=== PATIENT | male | born 1945 | race Caucasian/White ===

== ENCOUNTER → 2018-05-09 09:22 | Outpatient (CLI) | payer MEDICARE, OTHER, SELFPAY ==
--- NOTE | 2018-05-09 | DI.ECHO.S_ITS ---
[place] [facility] +---------+ : : [address] : [address] : : : : [id number] : : : : Phone: [phone]---------+ Echocardiogram Report + + :Name: DEWAYNE OLIVER Study Date: 05/09/2018 Height: 70.5 in: :[facility] Exam Location: [facility] Weight: 217 lb : : Gender: Male BSA: 2.2 m2 : :: 1945 Age: 73 yrs BP: 110/62 mmHg: :Reason For Study: CARDIOMYOPATHY : :Ordering Physician: Annette : :Christ Performed By: Mami Miller : :Referring: ANNETTE BARRIOS : + + Interpretation Summary The left ventricle is normal in size, wall thickness, and systolic function without any focal wall motion abnormalities with the ejection fraction visually estimated to be 55-60%. Left ventricular systolic function has mildly improved compared to the previous exam. The right ventricle is normal in size and function and appears unchanged compared to the previous study. Pulmonary artery pressures cannot be estimated because of the lack of a measurable TR jet velocity but the IVC suggests a CVP of around 3 mmHg. The left atrium is severely dilated and the right atrium is moderate to severely dilated. Both measure mildly larger compared to the previous study. A patent foramen ovale is present that is unchanged compared to the previous study. There is no significant valvular heart disease. The ascending aorta is moderately enlarged and measures slightly larger compared to the previous study. The aortic arch is mildly enlarged but somewhat smaller compared to the previous exam. The patient was in atrial fibrillation with heart rates between 60 and 101 bpm during the exam. Procedure: A two-dimensional transthoracic echocardiogram with color flow and Doppler was performed. The study quality was technically adequate. Comparison is made with the echocardiogram of 05/03/17. The patient was in atrial fibrillation with heart rates between 60 and 101 bpm during the exam. Left Ventricle: The left ventricle is normal in size, wall thickness, and systolic function without any focal wall motion abnormalities. The ejection fraction is estimated to be 55-60%. Left ventricular systolic function has mildly improved compared to the previous exam. Diastolic function could not be accurately assessed due to atrial fibrillation. Right Ventricle: The right ventricle is normal in size and function. This is unchanged compared to the previous study. Atria: The left atrium is severely dilated. The right atrium is moderate to severely dilated. This is mildly larger compared to the previous study. A patent foramen ovale is present. This is unchanged compared to the previous study. Mitral Valve: There is mild to moderate mitral annular calcification. The mitral valve leaflets are slightly calcified. There is trace mitral regurgitation. Aortic Valve: The aortic valve is trileaflet. There is mild aortic valve sclerosis. Leaflet mobility is minimally reduced. There is no aortic valve stenosis. There is trace aortic regurgitation. This is unchanged compared to the previous study. Tricuspid Valve: The tricuspid valve is normal. There is a trace or physiologic amount of tricuspid regurgitation. Pulmonary artery pressures cannot be estimated because of the lack of a measurable TR jet velocity but the IVC suggests a CVP of around 3 mmHg. Pulmonic Valve: The pulmonic valve is not well seen, but is grossly normal. There is a trace or physiologic amount of pulmonic regurgitation. There is no significant valvular heart disease. Great Vessels: The aortic root is normal size. The ascending aorta is moderately enlarged. This is slightly larger compared to the previous study. The aortic arch is mildly enlarged. The pulmonary is not well visualized. The IVC is of normal diameter and collapses greater than 50% with a sniff. This suggests a low right atrial pressure of 3 mm Hg. Pericardium/ Pleura There is no pericardial effusion. There is no pleural effusion. MMode/2D Measurements & Calculations LVIDd: 4.3 cm LVOT diam: 2.5 cm LVIDs: 2.5 cm Ao root diam: 3.2 cm FS: 42.6 % asc Aorta Diam: 4.2 cm EPSS: 0.24 cm Ao Arch Diam (Prox Trans): 3.2 cm IVSd: 1.1 cm LVPWd: 0.83 cm LV morales. diameter/BSA (cm/m^2): 2.0 LV sys. diameter/BSA (cm/m^2): 1.1 LA A2 area: 33.3 cm2 RA long axis: 6.2 cm LA A4 area: 27.6 cm2 RA area: 26.1 cm2 LA length (vol): 7.3 cm RA vol: 93.8 ml LA vol: 107.4 ml RA : 43.2 ml/m2 LA vol index: 49.4 ml/m2 IVC diam: 1.1 cm RVD1 (basal): 3.9 cm RVD2 (mid): 3.0 cm TAPSE: 1.2 cm Doppler Measurements & Calculations Ao V2 max: 106.2 cm/sec LVOT Max Jovani: 80.7 cm/sec Ao V2 mean: 67.8 cm/sec LV V1 max P.6 mmHg Ao max P.5 mmHg LV V1 VTI: 12.7 cm Ao mean P.2 mmHg ANTIONE(I,D): 3.8 cm2 Ao V2 VTI: 16.8 cm ANTIONE(V,D): 3.8 cm2 sev ratio: 0.76 ANTIONE indexed to BSA (cm^2/m^2): 1.7 MV E max jovani: 80.2 cm/sec PA V2 max: 65.9 cm/sec PA V2 mean: 45.1 cm/sec PA mean P.92 mmHg PA pr(Accel): 35.7 mmHg Reading Physician:SHERMAN
== END ==
PROVIDERS: PCP Naturopath; Visit Provider Specialist
DX: I35.8 Other nonrheumatic aortic valve disorders (principal); I42.9 Cardiomyopathy, unspecified; Q21.1 Atrial septal defect; I48.91 Unspecified atrial fibrillation; I77.810 Thoracic aortic ectasia
CPT/HCPCS: 93306

== ENCOUNTER → 2019-09-01 10:31 | Outpatient (CLI) | payer MEDICARE, OTHER, SELFPAY ==
[2019-09-01 11:56] LABS: Alanine Aminotransferase 18 IU/L (<50); Albumin 4.2 g/dL (3.5-5.0); Albumin Globulin Ratio 1.3 (1.0-2.8); Alkaline Phosphatase 78 U/L (38-126); Aspartate Aminotransferase 30 IU/L (17-59); BUN Creatinine Ratio 21.6 (6-22); Bilirubin Total 0.6 mg/dL (0.2-1.3); Blood Urea Nitrogen 24 mg/dL (9-20); Calcium 9.5 mg/dL (8.4-10.2); Carbon Dioxide 29 mmol/L (22-32); Chloride 102 mmol/L (98-107); Estimated Glomerular Filt Rate > 60.0 mL/min (>60); Globulin 3.3 g/dL (1.7-4.1); Glucose 103 mg/dL (80-110); HEMOLYSIS < 15 (0-50); Magnesium 2.1 mg/dL (1.6-2.3); Potassium 4.6 mmol/L (3.4-5.1); Sodium 138 mmol/L (137-145); Total Protein 7.5 g/dL (6.3-8.2)
[2019-09-04 12:04] LABS: Cholesterol, Total 187 mg/dL (100-199); HDL-Cholesterol 60 mg/dL (>39); HDL-Particle (Total) 39.4 umol/L (>=30.5); LDL Particle 1175 nmol/L (<1000); LDL Size 20.9 nm (>20.5); LDL-Cholsterol 88 mg/dL (0-99); LP-IR Score 46 (<=45); Small LDL- Particle 577 nmol/L (<=527); Triglycerides 195 mg/dL (0-149)
== END ==
PROVIDERS: PCP Naturopath; Referring Provider Specialist; Visit Provider Specialist
DX: I48.20 Chronic atrial fibrillation, unspecified (principal); E78.2 Mixed hyperlipidemia
CPT/HCPCS: 36415; 80053; 80061; 83704; 83735

== ENCOUNTER → 2020-08-08 09:17 | Outpatient (CLI) | payer MEDICARE, OTHER, SELFPAY ==
[2020-08-08 12:06] LABS: Alanine Aminotransferase 16 IU/L (<50); Albumin 4.2 g/dL (3.5-5.0); Albumin Globulin Ratio 1.4 (1.0-2.8); Alkaline Phosphatase 76 U/L (38-126); Aspartate Aminotransferase 30 IU/L (17-59); BUN Creatinine Ratio 19.4 (6-22); Bilirubin Total 0.7 mg/dL (0.2-1.3); Blood Urea Nitrogen 21 mg/dL (9-20); Calcium 9.4 mg/dL (8.4-10.2); Carbon Dioxide 30 mmol/L (22-32); Chloride 101 mmol/L (98-107); Estimated Glomerular Filt Rate > 60.0 mL/min (>60); Globulin 2.9 g/dL (1.7-4.1); Glucose 104 mg/dL (80-110); HEMOLYSIS < 15 (0-50); Magnesium 2.1 mg/dL (1.6-2.3); Potassium 4.6 mmol/L (3.4-5.1); Sodium 137 mmol/L (137-145); Total Protein 7.1 g/dL (6.3-8.2)
[2020-08-22 13:26] LABS: LDL Particle SEE SEPARATE REPORTS
== END ==
PROVIDERS: PCP Naturopath; Referring Provider Specialist; Visit Provider Specialist
DX: E78.00 Pure hypercholesterolemia, unspecified (principal); I48.20 Chronic atrial fibrillation, unspecified
CPT/HCPCS: 36415; 80053; 80061; 83704; 83735

== ENCOUNTER → 2021-05-23 09:19 | Outpatient (CLI) | payer MEDICARE, OTHER, SELFPAY ==
[2021-05-23 11:42] LABS: Alanine Aminotransferase 18 IU/L (<50); Albumin Globulin Ratio 1.4 (1.0-2.8); Alkaline Phosphatase 68 U/L (38-126); Aspartate Aminotransferase 28 IU/L (17-59); BUN Creatinine Ratio 16.3 (6-22); Bilirubin Total 0.9 mg/dL (0.2-1.3); Blood Urea Nitrogen 16 mg/dL (9-20); Calcium 9.4 mg/dL (8.4-10.2); Carbon Dioxide 30 mmol/L (22-32); Chloride 104 mmol/L (98-107); Estimated Glomerular Filt Rate > 60.0 mL/min (>60); Globulin 2.8 g/dL (1.7-4.1); Glucose 105 mg/dL (80-110); HEMOLYSIS < 15 (0-50); Magnesium 2.1 mg/dL (1.6-2.3); Potassium 5.1 mmol/L (3.4-5.1); Sodium 140 mmol/L (137-145); Total Protein 6.8 g/dL (6.3-8.2)
[2021-05-25 12:22] LABS: Cholesterol, Total 145 mg/dL (100-199); HDL-Cholesterol 55 mg/dL (>39); HDL-Particle (Total) 38.4 umol/L (>=30.5); LDL Particle 973 nmol/L (<1000); LDL-Cholsterol 68 mg/dL (0-99); LP-IR Score 60 (<=45); Small LDL- Particle 577 nmol/L (<=527); Triglycerides 123 mg/dL (0-149)
== END ==
PROVIDERS: PCP Naturopath; Referring Provider Physician Assistant Medical; Visit Provider Specialist
DX: I48.20 Chronic atrial fibrillation, unspecified (principal); E78.00 Pure hypercholesterolemia, unspecified
CPT/HCPCS: 36415; 80053; 80061; 83704; 83735

== ENCOUNTER → 2021-05-29 07:50 | Outpatient (CLI) | payer MEDICARE, OTHER, SELFPAY ==
--- NOTE | 2021-05-29 08:06 | DI.ECHO.S_ITS ---
:Reason For Study: DILATED CARDIOMYOPATHY : :Ordering Physician: SOPHIE : :ANNETTE Performed By: Nichelle Rehman : :Referring: ANNETTE BARRIOS : + + Interpretation Summary Left ventricular systolic function remains normal with an estimated ejection fraction of 50 to 60% without any focal wall motion abnormality and appears unchanged from the previous exam. Left ventricular size remains normal with mild concentric LVH. Diastolic function is challenging to assess but there is no compelling evidence for significantly elevated filling pressures. The right ventricle appears normal in size and systolic function and unchanged from the previous study. Right ventricular systolic pressure cannot be estimated but CVP is likely around 3 mmHg. Both atria are moderate to severely enlarged but grossly unchanged from the previous study. There is a probable patent foramen ovale that was not well seen on today's study but was present on the previous exam. There is mild to moderate aortic valve sclerosis without stenosis with mild aortic regurgitation that is more prominent compared to the previous study. There is no other significant valvular abnormality. The ascending aorta remains moderately enlarged at 4.0 cm compared to 4.2 cm previous. The patient was in atrial fibrillation at 69 to 93 bpm, unchanged from the previous study. Procedure: A two-dimensional transthoracic echocardiogram with color flow and Doppler was performed. The study quality was technically adequate. Comparison is made with the echocardiogram of 05/09/2018. The patient was in atrial fibrillation with heart rates between 69-93 bpm during the exam. Left Ventricle: The left ventricle is normal in size. The estimated left ventricular end diastolic volume is 63 ml. There is mild concentric left ventricular hypertrophy. Left ventricular systolic function appears normal without focal wall motion abnormalities. Left ventricular ejection fraction is estimated to be 50 to 60% with considerable [id number] variability because of atrial fibrillation. Diastolic function could not be accurately assessed due to atrial fibrillation. There is no compelling evidence for significantly elevated filling pressures. Right Ventricle: The right ventricle is normal in size and function. This is unchanged compared to the previous study. Atria: Both atria are moderately dilated. This is unchanged compared to the previous study. The interatrial septum grossly appears intact with no obvious evidence for an atrial septal defect. There is a probable patent foramen ovale that is not well documented on this exam but was present on the previous study. Mitral Valve: There is mild to moderate mitral annular calcification. There is trace mitral regurgitation. Aortic Valve: The aortic valve is trileaflet. The aortic valve is moderately calcified. There is minimally reduced leaflet mobility. There is no aortic valve stenosis. There is mild aortic regurgitation. This is more prominent compared to the previous study. Tricuspid Valve: The tricuspid valve is normal in structure and function. There is trace tricuspid regurgitation. Pulmonary artery pressures cannot be estimated because of the lack of a measurable TR jet velocity but the IVC suggests a CVP of around 3 mmHg. Pulmonic Valve: The pulmonic valve leaflets are thin and pliable; valve motion is normal. There is no pulmonic valvular regurgitation. Great Vessels: The aortic root is normal size. The ascending aorta is moderately enlarged. This is unchanged compared to the previous study. The aortic arch is normal in size. The IVC is of normal diameter and collapses greater than 50% with a sniff. This suggests a low right atrial pressure of 3 mm Hg. Pericardium/ Pleura There is no pericardial effusion. There is no pleural effusion. MMode/2D Measurements & Calculations LVIDd: 3.9 cm LVOT diam: 2.4 cm LVIDs: 2.8 cm Ao root diam: 3.5 cm FS: 28.4 % asc Aorta Diam: 4.0 cm IVSd: 1.2 cm Ao Arch Diam (Prox Trans): 2.4 cm LVPWd: 1.1 cm LV morales. diameter/BSA (cm/m^2): 1.8 LV sys. diameter/BSA (cm/m^2): 1.3 LA A2 area: 31.2 cm2 RA long axis: 6.8 cm LA A4 area: 29.6 cm2 RA area: 28.7 cm2 LA length (vol): 7.0 cm RA vol: 102.9 ml LA vol: 111.8 ml RA : 46.4 ml/m2 LA vol index: 50.5 ml/m2 IVC diam: 2.0 cm RVD1 (basal): 4.1 cm TAPSE: 1.7 cm Doppler Measurements & Calculations Ao V2 max: 135.6 cm/sec LVOT Max Jovani: 89.3 cm/sec Ao V2 mean: 94.2 cm/sec LV V1 max P.2 mmHg Ao max P.4 mmHg LV V1 VTI: 17.7 cm Ao mean P.0 mmHg ANTIONE(I,D): 3.2 cm2 Ao V2 VTI: 25.2 cm ANTIONE(V,D): 3.0 cm2 sev ratio: 0.70 ANTIONE indexed to BSA (cm^2/m^2): 1.4 MV E max jovani: 92.3 cm/sec PA V2 max: 104.6 cm/sec MV A max ojvani: 0.96 cm/sec PA V2 mean: 70.0 cm/sec MV E/A: 96.5 PA mean P.2 mmHg Med Peak E' Ojvani: 9.2 cm/sec PA pr(Accel): 32.8 mmHg E/E' med: 10.0 Lat Peak E' Jovani: 10.4 cm/sec E/E' lat: 8.9 E/e' average: 9.4 MV dec time: 0.17 sec SV(LVOT): 80.3 ml Reading Physician:08:30 AM
== END ==
PROVIDERS: PCP Naturopath; Referring Provider Specialist; Visit Provider Specialist
DX: I35.0 Nonrheumatic aortic (valve) stenosis (principal); I77.89 Other specified disorders of arteries and arterioles; I42.0 Dilated cardiomyopathy
CPT/HCPCS: 93306

== ENCOUNTER 2022-02-11 12:06 | Emergency (ER) | payer MEDICARE, OTHER, SELFPAY ==
[2022-02-11] VITALS (12 sets, daily range): BP systolic 110–152; BP diastolic 71–83; PULSE 69–80; RESP 14–24; TEMP 37.2; O2SAT 98–99; BMI 34.4
--- NOTE | 2022-02-11 12:16 | DI.CT.S_ITS ---
PROCEDURE: CT CERVICAL SPINE WO CON INDICATIONS: fall on coumadin TECHNIQUE: Noncontrast 3 mm thick sections acquired from the skull base to the T4 level. Sagittal and coronal reformats were then constructed. For radiation dose reduction, the following was used: automated exposure control, adjustment of mA and/or kV according to patient size. COMPARISON: None. FINDINGS: Image quality: Excellent. Bones: No fractures or dislocations. Degenerative endplate changes, loss of disc height and bilateral facet hypertrophic changes are noted throughout cervical spine more prominent at C5-6 level causing [id number] central canal stenosis and mild bilateral neural foraminal narrowing. Visualized superior ribs are intact. Soft tissues: Prevertebral soft tissues are normal in thickness. No paravertebral hematomas. No apical pneumothoraces. IMPRESSION: 1. No acute cervical spine fracture or dislocation. 2. Degenerative disc disease throughout cervical spine as above. Dictated by: Stoney Yu M.D. on 02/11/2022 at 12:38 Approved by: Stoney Yu M.D. on 02/11/2022 at 12:40
--- NOTE | 2022-02-11 12:16 | DI.CT.S_ITS ---
PROCEDURE: CT HEAD/BRAIN WO CON INDICATIONS: fall on coumadin TECHNIQUE: Noncontrast 4.5 mm thick angled axial sections acquired from the foramen magnum to the vertex, with coronal and sagittal reformats. For radiation dose reduction, the following was used: automated exposure control, adjustment of mA and/or kV according to patient size. COMPARISON: None. FINDINGS: Image quality: Excellent. CSF spaces: Basal cisterns are patent. No extra-axial fluid collections. The ventricles are symmetric in size and shape. Brain: No intracranial bleeds or masses. There is cerebral volume loss for age, with resultant ventricular and sulcal prominence. There are periventricular and deep white matter chronic small vessel ischemic changes. There is intracranial internal carotid artery atherosclerosis. Skull and face: Left frontal scalp hematoma and swelling is seen. Calvarium and visualized facial bones appear intact, without suspicious lesions. Sinuses: Visualized sinuses and mastoids are clear. IMPRESSION: 1. No CT evidence of acute intracranial abnormalities. 2. Moderate atrophy and moderate white matter chronic small vessel ischemic changes. 3. Left frontal scalp hematoma and swelling, no gross acute skull fracture. Dictated by: Stoney Yu M.D. on 02/11/2022 at 12:41 Approved by: Stoney Yu M.D. on 02/11/2022 at 12:42
--- NOTE | 2022-02-11 12:16 | DI.RAD.S_ITS ---
PROCEDURE: XR CHEST 1V INDICATIONS: fall TECHNIQUE: One view of the chest was acquired. COMPARISON: None. FINDINGS: Surgical changes and devices: None. Lungs and pleura: Lungs are clear. No pleural effusions or pneumothorax. Mediastinum: Mediastinal contours appear normal. Heart size is enlarged. Bones and chest wall: No suspicious bony lesions. Overlying soft tissues appear unremarkable. IMPRESSION: No acute cardiopulmonary pathology. Dictated by: Stoney Yu M.D. on 02/11/2022 at 12:38 Approved by: Stoney Yu M.D. on 02/11/2022 at 12:38
--- NOTE | 2022-02-11 12:16 | DI.CT.S_ITS ---
PROCEDURE: CT FACIAL BONES WO CON INDICATIONS: fall on coumadin TECHNIQUE: Noncontrast 2.5 mm thick axial images acquired from the mandible through the frontal sinuses, with coronal and sagittal reformatting. For radiation dose reduction, the following was used: automated exposure control, adjustment of mA and/or kV according to patient size. COMPARISON: None. FINDINGS: Image quality: Excellent. Bones and teeth: Orbital aldana are intact. Sinus aldana show no fracture or deformity. Nasal bones and septum are intact. Visualized portions of the mandible demonstrate no fractures or subluxation. Zygomatic arches are intact. Pterygoid plates are intact. Visualized portions of the skull base and auditory canals are intact. Sinuses: Paranasal sinuses are aerated, without fluid levels, mucosal thickening, or mucoceles. Mastoid air cells are aerated. Soft tissues: Left frontal /supraorbital swelling and edema is seen. No other soft tissue edema or swelling. No enlarged lymph nodes. No soft tissue lacerations or debris. Vascular: Visualized vascular structures appear normal in the absence of contrast. Bony vascular foramina and canals are intact. IMPRESSION: 1. No acute facial bone or nasal bone fracture. 2. Left frontal/supraorbital soft tissue swelling and edema. Orbital aldana are intact. Bilateral orbital globes are intact. 3. Bilateral paranasal sinuses are well aerated. Dictated by: Stoney Yu M.D. on 02/11/2022 at 12:40 Approved by: Stoney Yu M.D. on 02/11/2022 at 12:41
[2022-02-11 12:44] LABS: Add Manual Diff / Slide Review NO; Basophils Absolute Auto 100 /uL (0-100); Basophils Percent Auto 0.9 % (0-2); Eosinophils Absolute Auto 100 /uL (0-450); Eosinophils Percent Auto 1.3 % (2-4); Hematocrit 44.7 % (41-53); Hemoglobin 15.1 g/dL (13.5-17.5); Lymphocytes Absolute Auto 900 /uL (1100-4500); Lymphocytes Percent Auto 10.9 % (25-40); Mean Corpuscular HGB Conc 33.7 % (30-36); Mean Corpuscular Hemoglobin 33.2 PG (26-34); Mean Corpuscular Volume 98.7 fL (80-100); Monocytes Absolute Auto 800 /uL (0-900); Monocytes Percent Auto 9.7 % (3-14); Neutrophils Absolute Auto 6200 /uL (1500-7000); Neutrophils Percent Auto 77.2 % (50-75); Platelet Count 145 X10^3/uL (150-400); Red Blood Cell Count 4.53 X10^6/uL (4.5-5.9); Red Cell Distribution Width 15.4 % (11.6-14.8)
[2022-02-11 12:51] LABS: INR 2.7 (0.9-1.3); Prothrombin Time 31.2 SECONDS (10.1-12.7)
[2022-02-11 12:53] LABS: PTT Partial Thromboplastin Tim 42 SECONDS (26-36)
--- NOTE | 2022-02-11 12:57 | ED_ITS ---
HPI - Fall General Chief Complaint: Fall Stated Complaint: DIZZY/FELL HIT LT. SIDE OF HEAD/INJURY Time Seen by Provider: 02/11/22 12:16 Source: patient Mode of arrival: Ambulatory Limitations: no limitations History of Present Illness HPI Narrative: This is a 76-year-old male with history of atrial fibrillation anticoagulant warfarin with Coreg, lisinopril, Lasix, Mag-Ox and rosuvastatin. Patient presents With complaint of possible syncope. Patient states he was taking his garbage out today he had taken across the street quite feel right and then states he remembers starting to fall to the ground and woke up shortly thereafter. Patient states he thinks it was maybe a couple minutes at the most. He would left the house at 9:00 a.m. and thinks he was back by 904. States he did have a little bit of spasm across and down his arm which he is had occasionally in the mornings about 1-2 hours after eating but not persistently or consistently but not with other meals. He denies fevers or chills no cold, cough or congestion. Denies any headaches prior to or after, no chest pain, patient has some chronic persistent shortness of breath which he relates to his AFib which has not changed. No palpitations. No diaphoresis. No nausea or vomiting. No loss of bowel control, no recent diarrhea, constipation black or bloody stools. He states he did have urinary incontinence with the episode happened. Patient denies any numbness or tingling other than just before. Patient states he is had these episodes a few times he describes it as always in the morning he will feel sick for about a minute or so he will usually sit down and it typically occurs 1-2 hours after he is eaten. He states it does not happen every single time it is not been consistent other than it is usually in the morning after breakfast. Patient denies any prior surgeries, no cardiac interventions, no stents or ablation. States a remote allergy to sulfa caused him to vomit. No tobacco, 3 alcoholic drinks daily in the evening, none this morning, no illicit. Patient is unsure if his tetanus is up-to-date. He has primary care was Cristela porter but is transitioning to Dr. Bravo on the . Dr. Polo is his senior electrical design engineer. Related Data Allergies Allergy/AdvReac Type Severity Reaction Status Date / Time Sulfa (Sulfonamide Allergy Verified 02/11/22 12:17 Antibiotics) Review of Systems Review of Systems ROS Unobtainable: All systems reviewed & are unremarkable except as noted in HPI and below Patient History Social History Smoking Status: Unknown if ever smoked Smoking Status: Unknown if ever smoked alcohol intake frequency: holidays/special occasions only Substance Use Type: does not use Exam Narrative Exam Narrative: GEN: Patient appears in mild distress. HEAD: Patient has left forehead hematoma with abrasion, no raccoon/Cerna sign. NECK: Nontender, painless range of motion, trachea midline Negative for Nexus criteria, there is no midline line tenderness, distracting injury, altered mental status, neuro deficit, recent EtOH. EYES: PERRLA, EOMI ENT: External inspection normal except for small abrasion over the bridge of the nose and as described above, trachea is midline, TM's are normal no hemotypanum, Nares are clear, no septal hematoma, no dental or oral injury, airway is normal and with normal occlusion, No bony tenderness, no malocclusion. RESP: Chest is nontender and has symmetric movement, no ecchymosis, breath sounds are normal no crackles, wheezes or rales CVS: Heart sounds are normal, no murmur noted, No JVD. ABG/GI: Nontender, soft, normal bowel sounds, no distention, no organomegaly, pelvic rock is negative NEURO: Oriented AOx3, neuro is grossly intact, sensation and motor is normal all 4 extremities moving, cranial nerves II through XII are intact, GCS is 15 PSYCH: Normal mood and affect SKIN: Patient has large abrasion on his right knee and anterior zheng no subcutaneous involvement, warm and dry, no crepitus and without decubitus BACK: No CVA tenderness, no vertebral tenderness, no step-off's, no crepitus EXT: Atraumatic, hips are nontender, no pedal edema, normal color and temperature, normal range of motion of extremities with normal tendon exam, 2+ pulses in all four extremities Initial Vital Signs Initial Vital Signs: Vital Signs Temperature 98.9 F 02/11/22 12:12 Pulse Rate 72 02/11/22 12:12 Respiratory Rate 16 02/11/22 12:12 Blood Pressure 134/83 09/07/22 12:12 Pulse Oximetry 99 02/11/22 12:12 Oxygen Delivery Method 02/11/22 12:12 Course Orders Ordered: ED Orders 02/11/22 12:16 CT cervical spine wo con Stat CT facial bones wo con Stat CT head/brain wo con Stat XR chest 1V Stat 02/11/22 12:35 Complete Blood Count AUTO DIFF Stat Comprehensive Metabolic Panel Stat D Dimer Stat Lipase Stat NT-proBNP (BNP-Adult 18+) Stat Partial Thromboplastin Time Stat Prothrombin Time INR Stat Troponin & CK Cardiac Panel Stat 02/11/22 12:37 EKG-12 Lead Stat 02/11/22 13:10 COVID19 -Nasal RAPID/Pre-Proc Stat 02/11/22 13:35 Urine Culture Stat Urine Microscopic Stat 02/11/22 14:30 ETOH [Ethanol (ETOH)] Stat Trop I [Troponin I] Stat Discontinued Medications Diphtheria/Tetanus/Acell Pertussis (Tet,Diph,Pertuss(Acell),Vac/Pf 0.5 Ml Syringe) 0.5 ml IM .ONCE ONE Stop: 02/11/22 13:17 Last Admin: 02/11/22 13:30 Dose: 0.5 ml Documented By: CATHERINE Vital Signs Vital signs: Vital Signs - 8 hr 02/11/22 12:12 02/11/22 12:15 02/11/22 12:39 Temperature 98.9 F Pulse Rate 72 80 Respiratory Rate 16 24 Blood Pressure 134/83 134/83 Pulse Oximetry 99 99 Oxygen Delivery Method Room Air 02/11/22 12:41 02/11/22 12:41 02/11/22 13:00 Temperature Pulse Rate 76 Respiratory Rate 21 Blood Pressure 121/74 116/76 Pulse Oximetry 99 Oxygen Delivery Method 02/11/22 13:00 02/11/22 13:30 02/11/22 13:30 Temperature Pulse Rate 76 70 Respiratory Rate 20 Blood Pressure 110/81 Pulse Oximetry 99 98 Oxygen Delivery Method 02/11/22 13:47 02/11/22 13:47 02/11/22 14:00 Temperature Pulse Rate 78 75 Respiratory Rate 17 15 Blood Pressure 152/79 H Pulse Oximetry 98 99 Oxygen Delivery Method 02/11/22 14:01 02/11/22 14:01 02/11/22 14:30 Temperature Pulse Rate 77 Respiratory Rate 15 Blood Pressure 126/71 119/80 Pulse Oximetry 99 Oxygen Delivery Method 02/11/22 14:30 02/11/22 15:00 02/11/22 15:00 Temperature Pulse Rate 80 69 Respiratory Rate 14 21 Blood Pressure 117/74 Pulse Oximetry 99 99 Oxygen Delivery Method 02/11/22 15:30 02/11/22 15:30 Temperature Pulse Rate 74 Respiratory Rate 24 Blood Pressure 137/81 Pulse Oximetry 99 Oxygen Delivery Method MDM - Fall Lab Data Result diagrams: 02/11/22 12:35 02/11/22 12:35 Labs: Lab Results 02/11/22 02/11/22 02/11/22 Range/Units 12:35 12:35 12:35 WBC 8.0 (4.5-11.0) X10^3/uL RBC 4.53 (4.5-5.9) X10^6/uL Hgb 15.1 (13.5-17.5) g/dL Hct 44.7 (41-53) % MCV 98.7 (80-100) fL MCH 33.2 (26-34) PG MCHC 33.7 (30-36) % RDW 15.4 H (11.6-14.8) % Plt Count 145 L (150-400) X10^3/uL Neut % (Auto) 77.2 H (50-75) % Lymph % (Auto) 10.9 L (25-40) % [place] % (Auto) 9.7 (3-14) % Eos % (Auto) 1.3 L (2-4) % Baso % (Auto) 0.9 (0-2) % Neut # (Auto) 6200 (8643-0834) /uL Lymph # (Auto) 900 L (5048-7191) /uL [place] # (Auto) 800 (0-900) /uL Eos # (Auto) 100 (0-450) /uL Baso # (Auto) 100 (0-100) /uL PT 31.2 H (10.1-12.7) SECONDS INR 2.7 H (0.9-1.3) APTT 42 H (26-36) SECONDS D-Dimer (<500) ng/ml Sodium 140 (137-145) mmol/L Potassium 4.3 (3.4-5.1) mmol/L Chloride 103 (98-107) mmol/L Carbon Dioxide 32 (22-32) mmol/L BUN 21 H (9-20) mg/dL Creatinine 1.13 (0.66-1.25) mg/dL Estimated GFR > 60 (>60) mL/min BUN/Creatinine Ratio 18.6 (6-22) Glucose 98 (80-110) mg/dL Calcium 9.2 (8.4-10.2) mg/dL Total Bilirubin 1.0 (0.2-1.3) mg/dL AST 59 (17-59) IU/L ALT 41 (<50) IU/L Alkaline Phosphatase 81 (38-126) U/L Total Creatine Kinase 65 (55-170) U/L CK-MB (CK-2) TNP CK-MB (CK-2) Rel Index TNP Troponin I < 0.012 (0.01-0.034) ng/mL NT-Pro-B Natriuret Pep (<125) pg/mL Total Protein 8.0 (6.3-8.2) g/dL Albumin 4.4 (3.5-5.0) g/dL Globulin 3.6 (1.7-4.1) g/dL Albumin/Globulin Ratio 1.2 (1.0-2.8) Lipase 118 (23-300) U/L Urine RBC (0-5/HPF) Urine WBC (0-5/HPF) Ur Squamous Epith Cells (0-5/HPF) Urine Bacteria (None) Ur Culture Indicated? Ethyl Alcohol ( - 10) mg/dL SARS-CoV-2 (PCR) (Negative) 02/11/22 02/11/22 02/11/22 Range/Units 12:35 12:35 13:10 WBC (4.5-11.0) X10^3/uL RBC (4.5-5.9) X10^6/uL Hgb (13.5-17.5) g/dL Hct (41-53) % MCV (80-100) fL MCH (26-34) PG MCHC (30-36) % RDW (11.6-14.8) % Plt Count (150-400) X10^3/uL Neut % (Auto) (50-75) % Lymph % (Auto) (25-40) % [place] % (Auto) (3-14) % Eos % (Auto) (2-4) % Baso % (Auto) (0-2) % Neut # (Auto) (8426-3724) /uL Lymph # (Auto) (5856-4036) /uL [place] # (Auto) (0-900) /uL Eos # (Auto) (0-450) /uL Baso # (Auto) (0-100) /uL PT (10.1-12.7) SECONDS INR (0.9-1.3) APTT (26-36) SECONDS D-Dimer 423 (<500) ng/ml Sodium (137-145) mmol/L Potassium (3.4-5.1) mmol/L Chloride (98-107) mmol/L Carbon Dioxide (22-32) mmol/L BUN (9-20) mg/dL Creatinine (0.66-1.25) mg/dL Estimated GFR (>60) mL/min BUN/Creatinine Ratio (6-22) Glucose (80-110) mg/dL Calcium (8.4-10.2) mg/dL Total Bilirubin (0.2-1.3) mg/dL AST (17-59) IU/L ALT (<50) IU/L Alkaline Phosphatase (38-126) U/L Total Creatine Kinase (55-170) U/L CK-MB (CK-2) CK-MB (CK-2) Rel Index Troponin I (0.01-0.034) ng/mL NT-Pro-B Natriuret Pep 722 H (<125) pg/mL Total Protein (6.3-8.2) g/dL Albumin (3.5-5.0) g/dL Globulin (1.7-4.1) g/dL Albumin/Globulin Ratio (1.0-2.8) Lipase (23-300) U/L Urine RBC (0-5/HPF) Urine WBC (0-5/HPF) Ur Squamous Epith Cells (0-5/HPF) Urine Bacteria (None) Ur Culture Indicated? Ethyl Alcohol ( - 10) mg/dL SARS-CoV-2 (PCR) Negative (Negative) 02/11/22 02/11/22 02/11/22 Range/Units 13:35 14:30 14:30 WBC (4.5-11.0) X10^3/uL RBC (4.5-5.9) X10^6/uL Hgb (13.5-17.5) g/dL Hct (41-53) % MCV (80-100) fL MCH (26-34) PG MCHC (30-36) % RDW (11.6-14.8) % Plt Count (150-400) X10^3/uL Neut % (Auto) (50-75) % Lymph % (Auto) (25-40) % [place] % (Auto) (3-14) % Eos % (Auto) (2-4) % Baso % (Auto) (0-2) % Neut # (Auto) (6566-3931) /uL Lymph # (Auto) (8672-3277) /uL [place] # (Auto) (0-900) /uL Eos # (Auto) (0-450) /uL Baso # (Auto) (0-100) /uL PT (10.1-12.7) SECONDS INR (0.9-1.3) APTT (26-36) SECONDS D-Dimer (<500) ng/ml Sodium (137-145) mmol/L Potassium (3.4-5.1) mmol/L Chloride (98-107) mmol/L Carbon Dioxide (22-32) mmol/L BUN (9-20) mg/dL Creatinine (0.66-1.25) mg/dL Estimated GFR (>60) mL/min BUN/Creatinine Ratio (6-22) Glucose (80-110) mg/dL Calcium (8.4-10.2) mg/dL Total Bilirubin (0.2-1.3) mg/dL AST (17-59) IU/L ALT (<50) IU/L Alkaline Phosphatase (38-126) U/L Total Creatine Kinase (55-170) U/L CK-MB (CK-2) CK-MB (CK-2) Rel Index Troponin I < 0.012 (0.01-0.034) ng/mL NT-Pro-B Natriuret Pep (<125) pg/mL Total Protein (6.3-8.2) g/dL Albumin (3.5-5.0) g/dL Globulin (1.7-4.1) g/dL Albumin/Globulin Ratio (1.0-2.8) Lipase (23-300) U/L Urine RBC 1-5/hpf (0-5/HPF) Urine WBC 5-10/hpf H (0-5/HPF) Ur Squamous Epith Cells 0-1 /hpf (0-5/HPF) Urine Bacteria Occasional (0-1) (None) Ur Culture Indicated? Specimen cultured Ethyl Alcohol < 10 ( - 10) mg/dL SARS-CoV-2 (PCR) (Negative) Urine Dip Bedside Urine Glucose Negative Bedside Urine Bilirubin - Negative Bedside Urine Ketone - Negative Urine Specific [place] 1.025 Bedside Urine Occult Blood +/- Bedside Urine pH 6.0 Bedside Urine Protein - Negative Bedside Urine Urobilinogen - Negative Bedside Urine Nitrite - Negative Bedside Urine Leukocytes - Negative Esterase Imaging Data CT scan - head: Radiologist's Impression: Almas Bunch??76??M??1945 ? Allergy/Adv: Sulfa (Sulfonamide Antibiotics) (More??) Close Head CT (Signed) Stoney Yu - 02/11/[address] (Signed) Stoney Yu - 02/11/22 Chest X-Ray (Signed) Stoney Yu - 02/11/[address] (Signed) Stoney Yu - 02/11/22 Echocardiogram Ultrasound (Signed) Mitchell Polo - 05/29/21 Echocardiogram Ultrasound (Signed) Mitchell Polo - 05/09/18 [place] [address] CT Scan Report Signed Patient: Almas Bunch MR#: [id number] : 1945 Acct:[id number] Age/Sex: 76 / M Date of Service: 02/11/22 Loc: ED Accession Number: [id number] ?? Procedure: CT head/brain wo con Ordering Provider: Rachel Lea D.O. PROCEDURE:? CT HEAD/BRAIN WO CON ? INDICATIONS:? fall on coumadin ? TECHNIQUE:? Noncontrast 4.5 mm thick angled axial sections acquired from the foramen magnum to the vertex, with coronal and sagittal reformats.? For radiation dose reduction, the following was used:? automated exposure control, adjustment of mA and/or kV according to patient size.? ? COMPARISON:? None. ? FINDINGS:? Image quality:? Excellent.? ? CSF spaces:? Basal cisterns are patent.? No extra-axial fluid collections.? The ventricles are symmetric in size and shape.? ? Brain:? No intracranial bleeds or masses.? There is cerebral volume loss for age, with resultant ventricular and sulcal prominence.? There are periventricular and deep white matter chronic small vessel ischemic changes.? There is intracranial internal carotid artery atherosclerosis.? ? Skull and face:? Left frontal scalp hematoma and swelling is seen.? Calvarium and visualized facial bones appear intact, without suspicious lesions.? ? Sinuses:? Visualized sinuses and mastoids are clear.? ? IMPRESSION:? 1. No CT evidence of acute intracranial abnormalities. 2. Moderate atrophy and moderate white matter chronic small vessel ischemic changes. 3. Left frontal scalp hematoma and swelling, no gross acute skull fracture. ? ? Dictated by: Stoney Yu M.D. on 02/11/2022 at 12:41 ? ? Approved by: Stoney Yu M.D. on 02/11/2022 at 12:42?? CT - cervical spine: Radiologist's Impression: Close Head CT (Signed) Stoney Yu - 02/11/[address] (Signed) Stoney Yu - 02/11/22 Chest X-Ray (Signed) Stoney Yu - 02/11/[address] (Signed) Stoney Yu - 02/11/22 Echocardiogram Ultrasound (Signed) Mitchell Polo - 05/29/21 Echocardiogram Ultrasound (Signed) Mitchell Polo - 05/09/18 [facility] [address] CT Scan Report Signed Patient: Almas Bunch MR#: [id number] : 1945 Acct:[id number] Age/Sex: 76 / M Date of Service: 02/11/22 Loc: ED Accession Number: [id number] ?? Procedure: CT cervical spine wo con Ordering Provider: Rachel Lea D.O. PROCEDURE:? CT CERVICAL SPINE WO CON ? INDICATIONS:? fall on coumadin ? TECHNIQUE:? Noncontrast 3 mm thick sections acquired from the skull base to the T4 level.? Sagittal and coronal reformats were then constructed.? For radiation dose reduction, the following was used:? automated exposure control, adjustment of mA and/or kV according to patient size.? ? COMPARISON:? None. ? FINDINGS:? Image quality:? Excellent.? ? Bones:? No fractures or dislocations.? Degenerative endplate changes, loss of disc height and bilateral facet hypertrophic changes are noted throughout cervical spine more prominent at C5-6 level causing [id number] central canal stenosis and mild bilateral neural foraminal narrowing.? Visualized superior ribs are intact.? ? Soft tissues:? Prevertebral soft tissues are normal in thickness.? No paravertebral hematomas.? No apical pneumothoraces.? ? ? IMPRESSION:? 1. No acute cervical spine fracture or dislocation. 2. Degenerative disc disease throughout cervical spine as above.? ? Dictated by: Stoney Yu M.D. on 02/11/2022 at 12:38 ? ? Approved by: Stoney Yu M.D. on 02/11/2022 at 12:40?? Facial bones CT: Radiologist's Impression: [place] [address] CT Scan Report Signed Patient: Almas Bunch MR#: [id number] : 1945 Acct:[id number] Age/Sex: 76 / M Date of Service: 02/11/22 Loc: ED Accession Number: [id number] ?? Procedure: CT facial bones wo con Ordering Provider: Rachel Lea D.O. PROCEDURE:? CT FACIAL BONES WO CON ? INDICATIONS:? fall on coumadin ? TECHNIQUE:? Noncontrast 2.5 mm thick axial images acquired from the mandible through the frontal sinuses, with coronal and sagittal reformatting.? For radiation dose reduction, the following was used:? automated exposure control, adjustment of mA and/or kV according to patient size.? ? COMPARISON:? None. ? FINDINGS:? Image quality:? Excellent.? ? Bones and teeth:? Orbital aldana are intact.? Sinus aldana show no fracture or deformity.? Nasal bones and septum are intact.? Visualized portions of the mandible demonstrate no fractures or subluxation.? Zygomatic arches are intact.? Pterygoid plates are intact.? Visualized portions of the skull base and auditory canals are intact.? ? Sinuses:? Paranasal sinuses are aerated, without fluid levels, mucosal thickening, or mucoceles.? Mastoid air cells are aerated.? ? Soft tissues:? Left frontal /supraorbital swelling and edema is seen.? No other soft tissue edema or swelling.? No enlarged lymph nodes.? No soft tissue lacerations or debris.? ? Vascular:? Visualized vascular structures appear normal in the absence of contrast.? Bony vascular foramina and canals are intact.? ? IMPRESSION:? 1. No acute facial bone or nasal bone fracture. 2. Left frontal/supraorbital soft tissue swelling and edema.? Orbital aldana are intact.? Bilateral orbital globes are intact. 3.? Bilateral paranasal sinuses are well aerated. ? ? Dictated by: Stoney Yu M.D. on 02/11/2022 at 12:40 ? ? Approved by: Stoney Yu M.D. on 02/11/2022 at 12:41?? Chest x-ray: Radiologist's Impression: [place] [address] CT Scan Report Signed Patient: Almas Bunch MR#: [id number] : 1945 Acct:[id number] Age/Sex: 76 / M Date of Service: 02/11/22 Loc: ED Accession Number: [id number] ?? Procedure: CT facial bones wo con Ordering Provider: Rachel Lea D.O. PROCEDURE:? CT FACIAL BONES WO CON ? INDICATIONS:? fall on coumadin ? TECHNIQUE:? Noncontrast 2.5 mm thick axial images acquired from the mandible through the frontal sinuses, with coronal and sagittal reformatting.? For radiation dose reduction, the following was used:? automated exposure control, adjustment of mA and/or kV according to patient size.? ? COMPARISON:? None. ? FINDINGS:? Image quality:? Excellent.? ? Bones and teeth:? Orbital aldana are intact.? Sinus aldana show no fracture or deformity.? Nasal bones and septum are intact.? Visualized portions of the mandible demonstrate no fractures or subluxation.? Zygomatic arches are intact.? Pterygoid plates are intact.? Visualized portions of the skull base and auditory canals are intact.? ? Sinuses:? Paranasal sinuses are aerated, without fluid levels, mucosal thickening, or mucoceles.? Mastoid air cells are aerated.? ? Soft tissues:? Left frontal /supraorbital swelling and edema is seen.? No other soft tissue edema or swelling.? No enlarged lymph nodes.? No soft tissue lacerations or debris.? ? Vascular:? Visualized vascular structures appear normal in the absence of contrast.? Bony vascular foramina and canals are intact.? ? IMPRESSION:? 1. No acute facial bone or nasal bone fracture. 2. Left frontal/supraorbital soft tissue swelling and edema.? Orbital aldana are intact.? Bilateral orbital globes are intact. 3.? Bilateral paranasal sinuses are well aerated. ? ? Dictated by: Stoney Yu M.D. on 02/11/2022 at 12:40 ? ? Approved by: Stoney Yu M.D. on 02/11/2022 at 12:41?? ECG Data Attestation: I personally reviewed and interpreted this ECG as follows: Prior ECG tracings: available for review Interpretation: AFib rate 81 QRS of 92 and QTC 448. No acute ST changes noted. Patient does not have any priors for comparison. AFib rate of 67 QRS of [address] changes appreciated no dynamic changes from prior EKG today. MDM Narrative Medical decision making narrative: This is a 76-year-old male with what sounds like a syncopal episode. Patient did have urinary incontinence and had some prodrome of symptoms just before. Patient's labs show slightly elevated BNP but troponin negative x2 patient is in AFib but without any other arrhythmias here in the department or ST changes. Patient does not have any significant anemia, signs of infection or other clear changes. Patient is on warfarin INR not significantly elevated head CT is negative patient bones and neck were included and do not show any acute bony changes. Discussed with patient no clear acute changes for his cause today. Patient is ambulating without issue. Discussed would recommend Holter and echo as an outpatient which she states should be easy for him to obtain he is had them yearly with his cardiology workups. Return precautions all questions answered. Discharge Plan Departure Patient Disposition: Home Clinical Impression: Syncope Instructions: DI for Syncope in Adults (Fainting) Activity Restrictions/Additional Instructions: Follow-up with your physician for recheck, please call for an appointment. You may benefit from some additional workup including a Holter monitor or ZIO patch and echo or ultrasound of your heart. I suspect that you had a syncopal episode today, you platelets are slightly low and the should be monitored by your physician to make sure they do not continue to decrease. You can continue home medications as prescribed. Please return for fevers, recurrent episodes, passing out, new chest pain, shortness of breath, persistent vomiting, new swelling in your extremities or other new or concerning symptoms. Referrals: Nesha Porter ND [Primary Care Provider] - Visit Report Forms: Patient Portal/API
[2022-02-11 13:03] LABS: Alanine Aminotransferase 41 IU/L (<50); Albumin 4.4 g/dL (3.5-5.0); Albumin Globulin Ratio 1.2 (1.0-2.8); Alkaline Phosphatase 81 U/L (38-126); Aspartate Aminotransferase 59 IU/L (17-59); BUN Creatinine Ratio 18.6 (6-22); Blood Urea Nitrogen 21 mg/dL (9-20); Calcium 9.2 mg/dL (8.4-10.2); Carbon Dioxide 32 mmol/L (22-32); Chloride 103 mmol/L (98-107); Creatine Kinase 65 U/L (55-170); Estimated Glomerular Filt Rate > 60 mL/min (>60); Globulin 3.6 g/dL (1.7-4.1); Glucose 98 mg/dL (80-110); HEMOLYSIS < 15 (0-50); Lipase 118 U/L (23-300); Potassium 4.3 mmol/L (3.4-5.1); Sodium 140 mmol/L (137-145)
[2022-02-11 13:13] LABS: NT-proBNP (BNP-Adult 18+) 722 pg/mL (<125)
[2022-02-11 13:15] LABS: Troponin I < 0.012 ng/mL (0.01-0.034)
[2022-02-11] MEDS: TET,DIPH,PERTUSS(ACELL),VAC/PF 0.5 ML SYRINGE IM (13:30)
[2022-02-11 13:41] LABS: COVID19 -Nasal RAPID Negative (Negative)
[2022-02-11 14:26] LABS: Bacteria Urine Occasional (0-1); RBC Urine 1-5/HPF (0-5/HPF); Squamous Epithelial Cell Urine 0-1 /HPF (0-5/HPF); WBC Urine 5-10/HPF (0-5/HPF)
[2022-02-11 14:27] LABS: Culture Indicated Urine Specimen Cultured
[2022-02-11 14:42] LABS: D Dimer 423 ng/ml (<500)
[2022-02-11 14:57] LABS: Ethanol (ETOH) < 10 mg/dL
[2022-02-11 15:09] LABS: Troponin I < 0.012 ng/mL (0.01-0.034)
== END 2022-02-11 15:43 | disposition home or self-care (01) ==
PROVIDERS: Emergency Provider Emergency Medicine; PCP Naturopath
DX: R55 Syncope and collapse (principal); I48.91 Unspecified atrial fibrillation; Z79.01 Long term (current) use of anticoagulants; S09.90XA Unspecified injury of head, initial encounter; W19.XXXA Unspecified fall, initial encounter; Z23 Encounter for immunization; Z20.822 Contact with and (suspected) exposure to COVID-19
CPT/HCPCS: 36415; 70450; 70486; 71045; 72125; 80053; 80320; 81003; 81015; 82550; 83690; 83880; 84484; 85025; 85379; 85610; 85730; 87077; 87086; 87635; 90471; 93005; 93010; 99285; C9803; 90715

== ENCOUNTER → 2022-02-26 08:44 | Outpatient (CLI) | payer MEDICARE, OTHER, SELFPAY ==
[2022-02-26 10:48] LABS: Alanine Aminotransferase 19 IU/L (<50); Albumin 3.8 g/dL (3.5-5.0); Albumin Globulin Ratio 1.3 (1.0-2.8); Alkaline Phosphatase 65 U/L (38-126); Aspartate Aminotransferase 28 IU/L (17-59); BUN Creatinine Ratio 15.4 (6-22); Bilirubin Total 0.9 mg/dL (0.2-1.3); Blood Urea Nitrogen 16 mg/dL (9-20); Calcium 8.8 mg/dL (8.4-10.2); Carbon Dioxide 27 mmol/L (22-32); Chloride 104 mmol/L (98-107); Estimated Glomerular Filt Rate > 60 mL/min (>60); Glucose 104 mg/dL (80-110); HEMOLYSIS < 15 (0-50); Magnesium 1.9 mg/dL (1.6-2.3); Potassium 4.6 mmol/L (3.4-5.1); Sodium 139 mmol/L (137-145); Total Protein 6.8 g/dL (6.3-8.2)
[2022-02-26 16:07] LABS: Creatinine Urine Random 74.4 mg/dL
[2022-02-26 16:08] LABS: Microalbumi Creatinin Ratio Ur 84.6 ug/mg CR (<30); Microalbumin Urine Random 6.3 mg/dL (0-1.6)
[2022-02-28 10:16] LABS: Cholesterol, Total 131 mg/dL (100-199); HDL-Cholesterol 55 mg/dL (>39); HDL-Particle (Total) 37.5 umol/L (>=30.5); LDL Particle 704 nmol/L (<1000); LDL Size 20.3 nm (>20.5); LDL-Cholsterol 59 mg/dL (0-99); LP-IR Score 55 (<=45); Small LDL- Particle 476 nmol/L (<=527); Triglycerides 90 mg/dL (0-149)
== END ==
PROVIDERS: PCP Pediatrics; Referring Provider Specialist; Visit Provider Specialist
DX: I10 Essential (primary) hypertension (principal); E78.00 Pure hypercholesterolemia, unspecified; I48.20 Chronic atrial fibrillation, unspecified
CPT/HCPCS: 36415; 80053; 80061; 82043; 82570; 83704; 83735

== ENCOUNTER → 2022-03-09 08:43 | Outpatient (CLI) | payer MEDICARE, OTHER, SELFPAY ==
--- NOTE | 2022-03-09 08:46 | DI.ECHO.S_ITS ---
[facility] +---------+ : : [address] : [place] : : : : [id number] : : : : Phone: [phone]---------+ Echocardiogram Report + + :Name: DEWAYNE OLIVER Study Date: 03/09/2022 Height: 70.5 in: :[facility] ReadingLocation: Weight: 241 lb : : Gender: Male BSA: 2.3 m2 : :: 1945 Age: 77 yrs BP: 133/91 mmHg: :Reason For Study: SYNCOPE AND COLLAPSE : :Ordering Physician: SOPHIE, : :ANNETTE Performed By: Nichelle Rehman : :Referring: ANNETTE BARRIOS : + + Interpretation Summary Left ventricular systolic function remains low??normal with an estimated ejection fraction of 50 to 60% without any focal wall motion abnormality and appears unchanged compared to the previous study. Left ventricular volumes remain normal and unchanged. While diastolic function is difficult to accurately assess, it is likely normal with normal filling pressures and is likely unchanged from the previous study. The right ventricle is borderline enlarged with systolic function at the lower limits of normal but unchanged from the previous study. While right ventricular systolic pressure cannot be estimated, CVP is likely around 3 to 8 cm, and likely unchanged from the previous exam. There is moderate left atrial enlargement and borderline right atrial enlargement, and both measure smaller compared to the previous study, particularly the right atrium. There is mild mitral regurgitation that remains unchanged and mild aortic valve sclerosis without stenosis with mild to moderate aortic regurgitation that is slightly more prominent compared to the previous study but no other significant valvular abnormalities. The ascending aorta and proximal aortic arch remain moderately enlarged at 4.2 cm and 3.6 cm, respectively, but unchanged from the previous exam. The patient was in atrial fibrillation at 64 to 85 bpm, unchanged from the previous study. Procedure: A two-dimensional transthoracic echocardiogram with color flow and Doppler was performed. The study quality was technically adequate. Comparison is made with the echocardiogram of 05/29/2021. The patient was in atrial fibrillation with heart rates between 64-85 bpm during the exam. This is unchanged compared to the previous study. Left Ventricle: The left ventricle is normal in size and wall thickness. The estimated left ventricular end diastolic volume is 72 ml compred to previous 63 ml. Left ventricular systolic function is low normal. Left ventricular ejection fraction is estimated to be 50-60%. There is borderline global hypokinesis of the left ventricle. There are no focal wall motion abnormalities. This is unchanged compared to the previous study. Diastolic function could not be accurately assessed due to atrial fibrillation. Diastolic parameters suggest probable normal left ventricular diastolic function and normal filling pressures. This is likely unchanged compared to the previous study. Right Ventricle: The right ventricle is at the upper limits of normal in size. Right ventricular systolic function is at the lower limits of normal. This is unchanged compared to the previous study. Atria: The left atrium is moderately dilated. This is unchanged compared to the previous study. The right atrium is borderline dilated. The right atrium has mildly decreased in size since the prior echo exam. There is no Doppler evidence for an interatrial shunt. Mitral Valve: There is mild to moderate mitral annular calcification. There is mild mitral regurgitation. This is unchanged compared to the previous study. Aortic Valve: The aortic valve is trileaflet. There is mild aortic valve sclerosis. The aortic valve is moderately calcified. There is minimally reduced leaflet mobility. There is no aortic valve stenosis. There is mild to moderate aortic regurgitation. This is slightly more prominent compared to the previous study. Tricuspid Valve: The tricuspid valve is normal in structure and function. There is trace tricuspid regurgitation. Pulmonary artery pressures cannot be estimated because of the lack of a measurable TR jet velocity but the IVC suggests a CVP of around 3-8 mmHg. Pulmonic Valve: The pulmonic valve leaflets are thin and pliable; valve motion is normal. There is no pulmonic valvular regurgitation. Great Vessels: The aortic root is normal size. The ascending aorta is moderately enlarged. The aortic arch is moderately enlarged. This is unchanged compared to the previous study. The IVC is dilated (diameter is greater than 2.1 cm) yet it collapses greater than 50% with a sniff. This suggests a right atrial pressure of 8 mm Hg. Pericardium/ Pleura There is no pericardial effusion. There is no pleural effusion. MMode/2D Measurements & Calculations LVIDd: 5.0 cm LVOT diam: 2.4 cm LVIDs: 3.4 cm Ao root diam: 3.6 cm FS: 32.4 % asc Aorta Diam: 4.2 cm IVSd: 0.98 cm Ao Arch Diam (Prox Trans): 3.6 cm LVPWd: 1.2 cm LV morales. diameter/BSA (cm/m^2): 2.2 LV sys. diameter/BSA (cm/m^2): 1.5 LA A2 area: 30.4 cm2 RA long axis: 7.2 cm LA A4 area: 27.9 cm2 RA area: 23.4 cm2 LA length (vol): 6.9 cm RA vol: 64.5 ml LA vol: 103.5 ml RA : 28.4 ml/m2 LA vol index: 45.6 ml/m2 IVC diam: 2.2 cm RVD1 (basal): 4.4 cm RVD2 (mid): 3.2 cm TAPSE: 1.6 cm Doppler Measurements & Calculations Ao V2 max: 151.3 cm/sec LVOT Max Jovani: 84.6 cm/sec Ao V2 mean: 105.6 cm/sec LV V1 max P.9 mmHg Ao max P.2 mmHg LV V1 VTI: 18.6 cm Ao mean P.0 mmHg ANTIONE(I,D): 2.6 cm2 Ao V2 VTI: 33.5 cm ANTIONE(V,D): 2.6 cm2 sev ratio: 0.56 ANTIONE indexed to BSA (cm^2/m^2): 1.1 AI P1/2t: 767.7 msec AI dec slope: 152.1 cm/sec2 MV E max jovani: 98.7 cm/sec PA V2 max: 82.7 cm/sec MV A max jovani: 1.4 cm/sec PA V2 mean: 65.2 cm/sec MV E/A: 73.0 PA mean P.8 mmHg Med Peak E' Jovnai: 8.6 cm/sec PA pr(Accel): 34.5 mmHg E/E' med: 11.5 Lat Peak E' Jovani: 12.8 cm/sec E/E' lat: 7.7 E/e' average: 9.6 MV dec time: 0.15 sec SV(LVOT): 85.4 ml Reading Physician:11:19 AM
== END ==
PROVIDERS: PCP Family Medicine; Visit Provider Specialist
DX: R55 Syncope and collapse (principal); I08.0 Rheumatic disorders of both mitral and aortic valves; I77.89 Other specified disorders of arteries and arterioles
CPT/HCPCS: 93306

== ENCOUNTER → 2022-03-10 15:43 | Outpatient (CLI) | payer MEDICARE, OTHER, SELFPAY ==
--- NOTE | 2022-03-10 15:44 | DI.US.S_ITS ---
PROCEDURE: US CAROTID DOPPLER BI INDICATIONS: SYNCOPE TECHNIQUE: Color and pulse Doppler interrogation was performed of both carotid systems, with image documentation and velocity measurements. COMPARISON: [facility], CT, CT CERVICAL SPINE WO CON, 02/11/2022, 12:24. [facility], CT, CT HEAD/BRAIN WO CON, 02/11/2022, 12:24. FINDINGS: Stenosis calculations are based on SRU (Society of Radiologists in Ultrasound) criteria. Right side: Brachial blood pressure: 146/88 mm Hg. Common carotid artery peak systolic velocity: 60 cm/sec. Internal carotid artery peak systolic velocity: 50 cm/sec. Internal carotid artery end diastolic velocity: 12 cm/sec. External carotid artery peak systolic velocity: 59 cm/sec. ICA/CCA peak systolic ratio: 0.83. Puente scale imaging description: Echogenic plaques at the bifurcation Percent internal carotid artery stenosis: Less than 50%. Vertebral artery: Flow direction is antegrade. Left side: Brachial blood pressure: 153/93 mm Hg. Common carotid artery peak systolic velocity: 78 cm/sec. Internal carotid artery peak systolic velocity: 51 cm/sec. Internal carotid artery end diastolic velocity: 25 cm/sec. External carotid artery peak systolic velocity: 63 cm/sec. ICA/CCA peak systolic ratio: 0.65. Puente scale imaging description: Echogenic plaques at the bifurcation Percent internal carotid artery stenosis: Less than 50%. Vertebral artery: Flow direction is antegrade. IMPRESSION: 1. Less than 50% internal carotid artery stenosis bilaterally. Dictated by: Erich Wallace M.D. on 03/10/2022 at 16:35 Approved by: Erich Wallace M.D. on 03/10/2022 at 16:38
== END ==
PROVIDERS: PCP Family Medicine; Referring Provider Pediatrics; Visit Provider Pediatrics
DX: I48.91 Unspecified atrial fibrillation (principal); E78.5 Hyperlipidemia, unspecified; I10 Essential (primary) hypertension; R55 Syncope and collapse; I65.23 Occlusion and stenosis of bilateral carotid arteries
CPT/HCPCS: 93880

== ENCOUNTER 2022-08-15 06:31 | Emergency (ER) | payer MEDICARE, OTHER, SELFPAY ==
[2022-08-15] VITALS (36 sets, daily range): BP systolic 109–167; BP diastolic 67–107; PULSE 88–108; RESP 20–38; TEMP 36.8; O2SAT 94–99; BMI 35.2
--- NOTE | 2022-08-15 06:35 | DI.RAD.S_ITS ---
PROCEDURE: XR CHEST 1V INDICATIONS: chest pain TECHNIQUE: One view of the chest was acquired. COMPARISON: [facility], , XR CHEST 1V, 02/11/2022, 12:22. FINDINGS: Surgical changes and devices: None. Lungs and pleura: Low lung volumes. Given this, no visible dense consolidation, effusion, or pneumothorax. Mediastinum: The heart is moderately enlarged, similar compared to the prior study, possibly accentuated by low lung volumes. Normal aortic contour. No central venous congestion. Bones and chest wall: No suspicious bony lesions. Overlying soft tissues appear unremarkable. IMPRESSION: 1. No acute cardiopulmonary disease. 2. Stable cardiomegaly without radiographic signs of acute CHF. Dictated by: Sweetie Lomeli M.D. on 08/15/2022 at 7:00 Approved by: Sweetie Lomeli M.D. on 08/15/2022 at 7:01
--- NOTE | 2022-08-15 06:36 | ED_ITS ---
HPI - Chest Pain <Gama Da Silva DO - Last Filed: 08/15/22 17:21> General Chief Complaint: Chest Pain Stated Complaint: Chest pain radiating to back Time Seen by Provider: 08/15/22 06:35 History of Present Illness HPI narrative: 77-year-old male former smoker with history of hypertension, chronic AFib on Coumadin presents by EMS for evaluation chest pressure across his chest that woke him from sleep and radiated to his back. His blood pressure was initially found to be in the 180s, he was given 2 doses of nitro by EMS which brought his blood pressure down to the 120s with a complete resolution of symptoms. He denies any other associated symptoms such as dizziness, weakness or lightheadedness. He denies nausea, vomiting or shortness of breath. He exp lains any episodes of unexplained diaphoresis. He states that he has been feeling quite well lately and denies any exertional type symptoms, in fact he states he has been using his exercise bike with increasing frequency and denies any change in exercise tolerance. He has had no changes in diet or medications. Related Data Home Medications Medication Instructions Recorded Confirmed carvedilol 25 mg tablet See Rx Instructions .Route 02/20/22 02/20/22 .COMPLEX A-fib lisinopril 2.5 mg tablet 2.5 mg PO DAILY 02/20/22 02/20/22 magnesium oxide-pyridoxine HCl 362 1 tab PO DAILY A-fib 02/20/22 02/20/22 mg-20 mg tablet rosuvastatin 20 mg tablet 20 mg PO DAILY 02/20/22 02/20/22 warfarin 5 mg tablet 5 mg PO DAILY 02/20/22 02/20/22 Allergies Allergy/AdvReac Type Severity Reaction Status Date / Time Sulfa (Sulfonamide AdvReac Intermediate Vomiting Verified 02/20/22 10:57 Antibiotics) Review of Systems <Gama Da Silva DO - Last Filed: 08/15/22 17:21> Review of Systems Narrative: GENERAL: Denies chills, fatigue, malaise, fever, sweats. HEENT: Denies sinus pain, ear pain, sore throat, difficulty swallowing, dizziness. RESPIRATORY: Denies dyspnea, cough, wheezing, hemoptysis, sputum. CARDIOVASCULAR: See HPI GASTROINTESTINAL: Denies nausea, vomiting, abdominal pain, diarrhea, constipation, melena. : Denies dysuria, frequency, incontinence, hematuria, urinary retention. MUSCULOSKELETAL: denies weakness, joint pain, or bony pain SKIN: Denies rash, skin lesions, or other NEUROLOGIC: Denies weakness, headache, numbness, change in speech, confusion, seizures, incoordination. PSYCHIATRIC: No concerning psychosocial issues. 12 point review of systems is negative except for those stated above Patient History <Gama Da Silva DO - Last Filed: 08/15/22 17:21> Medical History Atrial fibrillation (~2017) Hearing loss Wears glasses Family History Father History of heart disease Mother History of heart disease Brother History of kidney cancer Social History Smoking Status: Former smoker (Quit 2013) Tobacco: How many years used: 30 quit status: quit date established alcohol intake: current (2-3 drinks a night ) substance use type: former substance user (former marijuana in -s) and marijuana (former ) Smoking Status: Former smoker (Quit 2013) alcohol intake frequency: holidays/special occasions only Substance Use Type: does not use Exam <Gama Da Silva DO - Last Filed: 08/15/22 17:21> Narrative Exam Narrative: GENERAL: [77] year old patient appears stated age. Well-developed patient, in mild distress. HEAD: Atraumatic. Normocephalic. EYES: Pupils equal round and reactive. Extraocular motions intact. No scleral icterus. No injection or drainage. ENT: Nose without bleeding, purulent drainage. Throat without erythema, tonsillar hypertrophy or exudate. Airway patent. NECK: Trachea midline. Non tender CARDIOVASCULAR: Irregular rate and rhythm without murmurs, gallops, or rubs. RESPIRATORY: Clear to auscultation. Breath sounds equal bilaterally. No wheezes, rales, or rhonchi. GASTROINTESTINAL: Abdomen soft, non-tender, nondistended. EXTREMITIES: No edema or joint tenderness. BACK: Nontender without deformity or crepitance. No flank tenderness. NEURO: AOx3. SKIN: No rash or erythema of visible areas Initial Vital Signs Initial Vital Signs: Vital Signs Pulse Rate 99 H 08/15/22 06:34 Respiratory Rate 21 08/15/22 06:34 Pulse Oximetry 96 08/15/22 06:34 <En Mccollum DO - Last Filed: 08/15/22 12:00> Initial Vital Signs Initial Vital Signs: Vital Signs Pulse Rate 99 H 08/15/22 06:34 Respiratory Rate 21 08/15/22 06:34 Pulse Oximetry 96 08/15/22 06:34 Course <Gama Da Silva DO - Last Filed: 08/15/22 17:21> Orders Ordered: ED Orders 08/15/22 08:35 Troponin & CK Cardiac Panel Stat 08/15/22 10:45 Troponin & CK Cardiac Panel Stat Discontinued Medications Hydrocodone Bitart/Acetaminophen (Hydrocodone/Acet 5/325 Tablet) 1 tab PO NOW ONE Stop: 08/15/22 12:10 Last Admin: 08/15/22 12:19 Dose: 1 tab Documented By: JUSTYNA Aspirin (Aspirin 81 Mg Chew Tab) 324 mg PO NOW ONE Stop: 08/15/22 06:36 Last Admin: 08/15/22 09:11 Dose: Not Given Documented By: GELY Sodium Chloride (Normal Saline 0.9%) 1,000 mls @ 150 mls/hr IV CONT STEPHANIE Last Infusion: 08/15/22 12:20 Dose: 0 mls/hr Documented By: Admin: 08/15/22 06:46 Dose: 150 mls/hr Documented By: LYNDA Morphine Sulfate (Morphine 4 Mg/Ml Inj) 4 mg IV NOW ONE Stop: 08/15/22 08:43 Last Admin: 08/15/22 09:11 Dose: 4 mg Documented By: JUSTYNA Nitroglycerin (Nitroglycerin 0.4 Mg Sl Tab) 0.4 mg SL [id number] PRN PRN Reason: Chest Pain Last Admin: 08/15/22 08:32 Dose: 0.4 mg Documented By: Admin: 08/15/22 08:23 Dose: 0.4 mg Documented By: Admin: 08/15/22 08:13 Dose: 0.4 mg Documented By: JUSTYNA Vital Signs Vital signs: Vital Signs - 8 hr 08/15/22 09:30 08/15/22 09:30 08/15/22 09:45 Pulse Rate 92 H Respiratory Rate 31 H Blood Pressure 123/67 116/70 Pulse Oximetry 97 Oxygen Delivery Method 08/15/22 09:45 08/15/22 10:00 08/15/22 10:00 Pulse Rate 95 H 88 Respiratory Rate 30 H 30 H Blood Pressure 109/68 Pulse Oximetry 98 98 Oxygen Delivery Method 08/15/22 10:15 08/15/22 10:15 08/15/22 10:30 Pulse Rate 95 H 93 H Respiratory Rate 29 H Blood Pressure 123/79 Pulse Oximetry 97 98 Oxygen Delivery Method 08/15/22 10:30 08/15/22 10:45 08/15/22 10:45 Pulse Rate 95 H Respiratory Rate 30 H Blood Pressure 112/81 112/72 Pulse Oximetry 96 98 Oxygen Delivery Method Room Air 08/15/22 11:00 08/15/22 11:00 08/15/22 11:15 Pulse Rate 93 H 90 Respiratory Rate 24 Blood Pressure 139/77 Pulse Oximetry 97 98 Oxygen Delivery Method 08/15/22 11:16 08/15/22 11:16 08/15/22 11:30 Pulse Rate 90 Respiratory Rate 22 Blood Pressure 127/86 124/79 Pulse Oximetry 98 Oxygen Delivery Method 08/15/22 11:30 08/15/22 11:45 08/15/22 11:45 Pulse Rate 88 97 H Respiratory Rate 30 H Blood Pressure 134/80 Pulse Oximetry 98 98 Oxygen Delivery Method 08/15/22 12:00 08/15/22 12:00 08/15/22 12:15 Pulse Rate 97 H 97 H Respiratory Rate 24 Blood Pressure 121/71 Pulse Oximetry 98 98 Oxygen Delivery Method Room Air 08/15/22 12:18 08/15/22 12:18 08/15/22 12:45 Pulse Rate 98 H Respiratory Rate 31 H Blood Pressure 136/84 122/73 Pulse Oximetry 98 Oxygen Delivery Method 08/15/22 12:45 Pulse Rate 95 H Respiratory Rate 20 Blood Pressure Pulse Oximetry 96 Oxygen Delivery Method Room Air <En Mccollum DO - Last Filed: 08/15/22 12:00> Orders Ordered: ED Orders 08/15/22 08:35 Troponin & CK Cardiac Panel Stat 08/15/22 10:45 Troponin & CK Cardiac Panel Stat Discontinued Medications Hydrocodone Bitart/Acetaminophen (Hydrocodone/Acet 5/325 Tablet) 1 tab PO NOW ONE Stop: 08/15/22 12:10 Last Admin: 08/15/22 12:19 Dose: 1 tab Documented By: JUSTYNA Aspirin (Aspirin 81 Mg Chew Tab) 324 mg PO NOW ONE Stop: 08/15/22 06:36 Last Admin: 08/15/22 09:11 Dose: Not Given Documented By: GELY Sodium Chloride (Normal Saline 0.9%) 1,000 mls @ 150 mls/hr IV CONT STEPHANIE Last Infusion: 08/15/22 12:20 Dose: 0 mls/hr Documented By: Admin: 08/15/22 06:46 Dose: 150 mls/hr Documented By: LYNDA Morphine Sulfate (Morphine 4 Mg/Ml Inj) 4 mg IV NOW ONE Stop: 08/15/22 08:43 Last Admin: 08/15/22 09:11 Dose: 4 mg Documented By: JUSTYNA Nitroglycerin (Nitroglycerin 0.4 Mg Sl Tab) 0.4 mg SL [id number] PRN PRN Reason: Chest Pain Last Admin: 08/15/22 08:32 Dose: 0.4 mg Documented By: Admin: 08/15/22 08:23 Dose: 0.4 mg Documented By: Admin: 08/15/22 08:13 Dose: 0.4 mg Documented By: JUSTYNA Vital Signs Vital signs: Vital Signs - 8 hr 08/15/22 09:30 08/15/22 09:30 08/15/22 09:45 Pulse Rate 92 H Respiratory Rate 31 H Blood Pressure 123/67 116/70 Pulse Oximetry 97 Oxygen Delivery Method 08/15/22 09:45 08/15/22 10:00 08/15/22 10:00 Pulse Rate 95 H 88 Respiratory Rate 30 H 30 H Blood Pressure 109/68 Pulse Oximetry 98 98 Oxygen Delivery Method 08/15/22 10:15 08/15/22 10:15 08/15/22 10:30 Pulse Rate 95 H 93 H Respiratory Rate 29 H Blood Pressure 123/79 Pulse Oximetry 97 98 Oxygen Delivery Method 08/15/22 10:30 08/15/22 10:45 08/15/22 10:45 Pulse Rate 95 H Respiratory Rate 30 H Blood Pressure 112/81 112/72 Pulse Oximetry 96 98 Oxygen Delivery Method Room Air 08/15/22 11:00 08/15/22 11:00 08/15/22 11:15 Pulse Rate 93 H 90 Respiratory Rate 24 Blood Pressure 139/77 Pulse Oximetry 97 98 Oxygen Delivery Method 08/15/22 11:16 08/15/22 11:16 08/15/22 11:30 Pulse Rate 90 Respiratory Rate 22 Blood Pressure 127/86 124/79 Pulse Oximetry 98 Oxygen Delivery Method 08/15/22 11:30 08/15/22 11:45 08/15/22 11:45 Pulse Rate 88 97 H Respiratory Rate 30 H Blood Pressure 134/80 Pulse Oximetry 98 98 Oxygen Delivery Method 08/15/22 12:00 08/15/22 12:00 08/15/22 12:15 Pulse Rate 97 H 97 H Respiratory Rate 24 Blood Pressure 121/71 Pulse Oximetry 98 98 Oxygen Delivery Method Room Air 08/15/22 12:18 08/15/22 12:18 08/15/22 12:45 Pulse Rate 98 H Respiratory Rate 31 H Blood Pressure 136/84 122/73 Pulse Oximetry 98 Oxygen Delivery Method 08/15/22 12:45 Pulse Rate 95 H Respiratory Rate 20 Blood Pressure Pulse Oximetry 96 Oxygen Delivery Method Room Air MDM - Chest Pain <Gama Da Silva, DO - Last Filed: 08/15/22 17:21> Lab Data 08/15/22 06:30 08/15/22 06:30 Labs: Lab Results 08/15/22 08/15/22 08/15/22 Range/Units 06:30 06:30 06:30 WBC 11.2 H (4.5-11.0) X10^3/uL RBC 5.01 (4.5-5.9) X10^6/uL Hgb 16.9 (13.5-17.5) g/dL Hct 49.7 (41-53) % MCV 99.2 (80-100) fL MCH 33.7 (26-34) PG MCHC 33.9 (30-36) % RDW 14.3 (11.6-14.8) % Plt Count TNP Neut % (Auto) 81.8 H (50-75) % Lymph % (Auto) 6.6 L (25-40) % [place] % (Auto) 10.5 (3-14) % Eos % (Auto) 0.7 L (2-4) % Baso % (Auto) 0.4 (0-2) % Neut # (Auto) 9200 H (3472-4495) /uL Lymph # (Auto) 700 L (9270-6049) /uL [place] # (Auto) 1200 H (0-900) /uL Eos # (Auto) 100 (0-450) /uL Baso # (Auto) 0 (0-100) /uL PT 21.3 H (10.1-12.7) SECONDS INR 1.8 H (0.9-1.3) Sodium 137 (137-145) mmol/L Potassium 5.1 (3.4-5.1) mmol/L Chloride 100 (98-107) mmol/L Carbon Dioxide 29 (22-32) mmol/L BUN 15 (9-20) mg/dL Creatinine 0.94 (0.66-1.25) mg/dL Estimated GFR > 60 (>60) mL/min BUN/Creatinine Ratio 16.0 (6-22) Glucose 128 H (80-110) mg/dL Calcium 9.2 (8.4-10.2) mg/dL Total Bilirubin 1.5 H (0.2-1.3) mg/dL AST 31 (17-59) IU/L ALT 20 (<50) IU/L Alkaline Phosphatase 73 (38-126) U/L Total Creatine Kinase 44 L (55-170) U/L CK-MB (CK-2) TNP CK-MB (CK-2) Rel Index TNP Troponin I < 0.012 (0.01-0.034) ng/mL NT-Pro-B Natriuret Pep (<450) pg/mL Total Protein 8.4 H (6.3-8.2) g/dL Albumin 4.6 (3.5-5.0) g/dL Globulin 3.8 (1.7-4.1) g/dL Albumin/Globulin Ratio 1.2 (1.0-2.8) Lipase 70 (23-300) U/L 08/15/22 08/15/22 08/15/22 Range/Units 06:30 08:35 10:45 WBC (4.5-11.0) X10^3/uL RBC (4.5-5.9) X10^6/uL Hgb (13.5-17.5) g/dL Hct (41-53) % MCV (80-100) fL MCH (26-34) PG MCHC (30-36) % RDW (11.6-14.8) % Plt Count Neut % (Auto) (50-75) % Lymph % (Auto) (25-40) % [place] % (Auto) (3-14) % Eos % (Auto) (2-4) % Baso % (Auto) (0-2) % Neut # (Auto) (6645-4921) /uL Lymph # (Auto) (6356-9455) /uL [place] # (Auto) (0-900) /uL Eos # (Auto) (0-450) /uL Baso # (Auto) (0-100) /uL PT (10.1-12.7) SECONDS INR (0.9-1.3) Sodium (137-145) mmol/L Potassium (3.4-5.1) mmol/L Chloride (98-107) mmol/L Carbon Dioxide (22-32) mmol/L BUN (9-20) mg/dL Creatinine (0.66-1.25) mg/dL Estimated GFR (>60) mL/min BUN/Creatinine Ratio (6-22) Glucose (80-110) mg/dL Calcium (8.4-10.2) mg/dL Total Bilirubin (0.2-1.3) mg/dL AST (17-59) IU/L ALT (<50) IU/L Alkaline Phosphatase (38-126) U/L Total Creatine Kinase 45 L 40 L (55-170) U/L CK-MB (CK-2) TNP TNP CK-MB (CK-2) Rel Index TNP TNP Troponin I 0.017 < 0.012 (0.01-0.034) ng/mL NT-Pro-B Natriuret Pep 695 H (<450) pg/mL Total Protein (6.3-8.2) g/dL Albumin (3.5-5.0) g/dL Globulin (1.7-4.1) g/dL Albumin/Globulin Ratio (1.0-2.8) Lipase (23-300) U/L <En Mccollum DO - Last Filed: 08/15/22 12:00> Lab Data Attestation: I reviewed the patient's lab results. Labs: Lab Results 08/15/22 08/15/22 08/15/22 Range/Units 06:30 06:30 06:30 WBC 11.2 H (4.5-11.0) X10^3/uL RBC 5.01 (4.5-5.9) X10^6/uL Hgb 16.9 (13.5-17.5) g/dL Hct 49.7 (41-53) % MCV 99.2 (80-100) fL MCH 33.7 (26-34) PG MCHC 33.9 (30-36) % RDW 14.3 (11.6-14.8) % Plt Count TNP Neut % (Auto) 81.8 H (50-75) % Lymph % (Auto) 6.6 L (25-40) % [place] % (Auto) 10.5 (3-14) % Eos % (Auto) 0.7 L (2-4) % Baso % (Auto) 0.4 (0-2) % Neut # (Auto) 9200 H (2900-0432) /uL Lymph # (Auto) 700 L (9630-9333) /uL [place] # (Auto) 1200 H (0-900) /uL Eos # (Auto) 100 (0-450) /uL Baso # (Auto) 0 (0-100) /uL PT 21.3 H (10.1-12.7) SECONDS INR 1.8 H (0.9-1.3) Sodium 137 (137-145) mmol/L Potassium 5.1 (3.4-5.1) mmol/L Chloride 100 (98-107) mmol/L Carbon Dioxide 29 (22-32) mmol/L BUN 15 (9-20) mg/dL Creatinine 0.94 (0.66-1.25) mg/dL Estimated GFR > 60 (>60) mL/min BUN/Creatinine Ratio 16.0 (6-22) Glucose 128 H (80-110) mg/dL Calcium 9.2 (8.4-10.2) mg/dL Total Bilirubin 1.5 H (0.2-1.3) mg/dL AST 31 (17-59) IU/L ALT 20 (<50) IU/L Alkaline Phosphatase 73 (38-126) U/L Total Creatine Kinase 44 L (55-170) U/L CK-MB (CK-2) TNP CK-MB (CK-2) Rel Index TNP Troponin I < 0.012 (0.01-0.034) ng/mL NT-Pro-B Natriuret Pep (<450) pg/mL Total Protein 8.4 H (6.3-8.2) g/dL Albumin 4.6 (3.5-5.0) g/dL Globulin 3.8 (1.7-4.1) g/dL Albumin/Globulin Ratio 1.2 (1.0-2.8) Lipase 70 (23-300) U/L 08/15/22 08/15/22 08/15/22 Range/Units 06:30 08:35 10:45 WBC (4.5-11.0) X10^3/uL RBC (4.5-5.9) X10^6/uL Hgb (13.5-17.5) g/dL Hct (41-53) % MCV (80-100) fL MCH (26-34) PG MCHC (30-36) % RDW (11.6-14.8) % Plt Count Neut % (Auto) (50-75) % Lymph % (Auto) (25-40) % [place] % (Auto) (3-14) % Eos % (Auto) (2-4) % Baso % (Auto) (0-2) % Neut # (Auto) (3202-4648) /uL Lymph # (Auto) (2313-5607) /uL [place] # (Auto) (0-900) /uL Eos # (Auto) (0-450) /uL Baso # (Auto) (0-100) /uL PT (10.1-12.7) SECONDS INR (0.9-1.3) Sodium (137-145) mmol/L Potassium (3.4-5.1) mmol/L Chloride (98-107) mmol/L Carbon Dioxide (22-32) mmol/L BUN (9-20) mg/dL Creatinine (0.66-1.25) mg/dL Estimated GFR (>60) mL/min BUN/Creatinine Ratio (6-22) Glucose (80-110) mg/dL Calcium (8.4-10.2) mg/dL Total Bilirubin (0.2-1.3) mg/dL AST (17-59) IU/L ALT (<50) IU/L Alkaline Phosphatase (38-126) U/L Total Creatine Kinase 45 L 40 L (55-170) U/L CK-MB (CK-2) TNP TNP CK-MB (CK-2) Rel Index TNP TNP Troponin I 0.017 < 0.012 (0.01-0.034) ng/mL NT-Pro-B Natriuret Pep 695 H (<450) pg/mL Total Protein (6.3-8.2) g/dL Albumin (3.5-5.0) g/dL Globulin (1.7-4.1) g/dL Albumin/Globulin Ratio (1.0-2.8) Lipase (23-300) U/L Imaging Data CT scan - chest: Radiologist's Impression: PROCEDURE:? CT ANGIO CHEST ? INDICATIONS:? chest and back pain eval for TAD ? TECHNIQUE:? After the administration of intravenous contrast, 2 mm thick sections acquired from the pulmonary apices to the posterior costophrenic angles.? 3-dimensional maximum intensity projection (MIP) coronal and sagittal reformats were then acquired through the thorax.? For radiation dose reduction, the following was used:? automated exposure co ntrol, adjustment of mA and/or kV according to patient size.? ? COMPARISON:? None. ? FINDINGS: Image quality:? Excellent.? ? Lungs and pleura: No acute air space opacities. No pleural effusions or pneumothorax.? Central and peripheral airways are patent and normal in caliber.? ? Mediastinum:? The heart is enlarged.? The coronary arteries have atherosclerotic calcifications.? Trace pericardial effusion.? No mediastinal adenopathy by size criteria. ?Thoracic aorta and central pulmonary arteries are normal in size.? Esophagus is normal in caliber.? No hiatal hernia. ? Bones and chest wall:? Multilevel degenerative changes of the thoracic spine.? No suspicious bony lesions.? Degenerative changes with no focal abnormality.? No axillary or supraclavicular adenopathy by size criteria.? Thyroid gland is normal. ? Abdomen:? Limited visualization of the upper abdomen shows no acute abnormality.? Simple cysts of both kidneys measuring 6 cm on the left. ? IMPRESSION:? 1. No acute abnormality of the chest. 2. Coronary artery disease. ECG Data Attestation: I personally reviewed and interpreted this ECG as follows: Interpretation: Repeat EKG after recurrence of chest pain Atrial fibrillation Ventricular rate [address] T wave changes MDM Narrative Medical decision making narrative: Dr Mccollum: Received turned over. Review patient's history and physical and workup up to this point. Patient has a history of persistent AFib. Is in AFib here in the ER. No signs of ischemia on his EKG. His INR is 1.8 today. His chest x-ray is unremarkable. First troponin is negative. Received turned over while 2nd troponin was pending. During this time the patient had a return of his pain. Repeat EKG once again shows atrial fibrillation but no ST changes. Second troponin negative. CT scan of his chest shows no aortic pathology. Lungs are clear. Was given nitro. This did not improve his pain. Morphine helped his pain. Had a discussion with cardiology who recommended the patient be admitted to the hospital for further risk stratification. I then talked with Dr. Traylor to admit to the hospital who accepted. When I was talking with the patient about coming into the hospital he stated that he had a stress test done at the end of last year. I once again talked with Dr. Clark with cardiology who was able to look up the stress test. He stated that it was an adequate test and showed no signs of ischemia. Patient also had a echocardiogram in March of last year which was relatively unremarkable. Admission was put on hold. A 3rd troponin was ordered which was subsequently negative. Given his 3- troponins, unremarkable AFib EKG, normal CT scan of the chest that his recent risk stratification plan to be is to discharge the patient home to follow-up with both his primary doctor and also his hand pleater. Patient was given return precautions. He expressed understanding and agreement. Discharge Plan Departure Patient Disposition: Home Clinical Impression: Atrial fibrillation, Chest pain Instructions: DI for Chest Pain Activity Restrictions/Additional Instructions: I recommend that you continue to take all of your medications as directed and contact your primary doctor and also your hand pleater for follow-up. Return to the emergency department for new symptoms. Prescriptions: No Action warfarin 5 mg tablet 5 mg PO DAILY rosuvastatin 20 mg tablet 20 mg PO DAILY lisinopril 2.5 mg tablet 2.5 mg PO DAILY carvedilol 25 mg tablet See Rx Instructions .ROUTE .COMPLEX Patient Comments: take 1.5 tablets (37.5 total) by mouth 2 (two) times a day Rx Instructions: take 1.5 tablets (37.5 total) by mouth 2 (two) times a day; magnesium oxide-pyridoxine HCl 362-20 mg tablet 1 tab PO DAILY Referrals: Sarah Moore DO [Primary Care Provider] - Stand Alone Forms: Patient Portal/API
[2022-08-15 06:46] LABS: Add Manual Diff / Slide Review NO; Basophils Absolute Auto 0 /uL (0-100); Basophils Percent Auto 0.4 % (0-2); Eosinophils Absolute Auto 100 /uL (0-450); Eosinophils Percent Auto 0.7 % (2-4); Hematocrit 49.7 % (41-53); Hemoglobin 16.9 g/dL (13.5-17.5); Lymphocytes Absolute Auto 700 /uL (1100-4500); Lymphocytes Percent Auto 6.6 % (25-40); Mean Corpuscular HGB Conc 33.9 % (30-36); Mean Corpuscular Hemoglobin 33.7 PG (26-34); Mean Corpuscular Volume 99.2 fL (80-100); Monocytes Absolute Auto 1200 /uL (0-900); Monocytes Percent Auto 10.5 % (3-14); Neutrophils Absolute Auto 9200 /uL (1500-7000); Neutrophils Percent Auto 81.8 % (50-75); Red Blood Cell Count 5.01 X10^6/uL (4.5-5.9); Red Cell Distribution Width 14.3 % (11.6-14.8); White Blood Cell Count 11.2 X10^3/uL (4.5-11.0)
[2022-08-15] MEDS: SODIUM CHLORIDE 0.9% 1,000 ML 150 ML IV (06:46)
[2022-08-15 06:48] LABS: INR 1.8 (0.9-1.3); Prothrombin Time 21.3 SECONDS (10.1-12.7)
[2022-08-15 06:54] LABS: Alanine Aminotransferase 20 IU/L (<50); Albumin 4.6 g/dL (3.5-5.0); Albumin Globulin Ratio 1.2 (1.0-2.8); Alkaline Phosphatase 73 U/L (38-126); Aspartate Aminotransferase 31 IU/L (17-59); Bilirubin Total 1.5 mg/dL (0.2-1.3); Blood Urea Nitrogen 15 mg/dL (9-20); Calcium 9.2 mg/dL (8.4-10.2); Carbon Dioxide 29 mmol/L (22-32); Chloride 100 mmol/L (98-107); Creatine Kinase 44 U/L (55-170); Estimated Glomerular Filt Rate > 60 mL/min (>60); Globulin 3.8 g/dL (1.7-4.1); Glucose 128 mg/dL (80-110); HEMOLYSIS 57 (0-50); Lipase 70 U/L (23-300); Sodium 137 mmol/L (137-145); Total Protein 8.4 g/dL (6.3-8.2)
[2022-08-15 06:55] LABS: Potassium 5.1 mmol/L (3.4-5.1)
[2022-08-15 07:03] LABS: NT-proBNP (BNP-Adult 18+) 695 pg/mL (<450)
[2022-08-15 07:05] LABS: Troponin I < 0.012 ng/mL (0.01-0.034)
--- NOTE | 2022-08-15 08:03 | DI.CT.S_ITS ---
PROCEDURE: CT ANGIO CHEST INDICATIONS: chest and back pain eval for TAD TECHNIQUE: After the administration of intravenous contrast, 2 mm thick sections acquired from the pulmonary apices to the posterior costophrenic angles. 3-dimensional maximum intensity projection (MIP) coronal and sagittal reformats were then acquired through the thorax. For radiation dose reduction, the following was used: automated exposure control, adjustment of mA and/or kV according to patient size. COMPARISON: None. FINDINGS: Image quality: Excellent. Lungs and pleura: No acute air space opacities. No pleural effusions or pneumothorax. Central and peripheral airways are patent and normal in caliber. Mediastinum: The heart is enlarged. The coronary arteries have atherosclerotic calcifications. Trace pericardial effusion. No mediastinal adenopathy by size criteria. Thoracic aorta and central pulmonary arteries are normal in size. Esophagus is normal in caliber. No hiatal hernia. Bones and chest wall: Multilevel degenerative changes of the thoracic spine. No suspicious bony lesions. Degenerative changes with no focal abnormality. No axillary or supraclavicular adenopathy by size criteria. Thyroid gland is normal. Abdomen: Limited visualization of the upper abdomen shows no acute abnormality. Simple cysts of both kidneys measuring 6 cm on the left. IMPRESSION: 1. No acute abnormality of the chest. 2. Coronary artery disease. Dictated by: Krishna Harp M.D. on 08/15/2022 at 8:33 Approved by: Krishna Harp M.D. on 08/15/2022 at 8:43
--- NOTE | 2022-08-15 08:04 | PC.NURSE ---
Pt reports increase in pain and feels diaphoretic, pt reports pain to entire body, Dr. Mccollum at bedside.
[2022-08-15] MEDS: NITROGLYCERIN 0.4 MG SL TAB SL ×3 (08:13→08:32)
[2022-08-15 09:11] LABS: Creatine Kinase 45 U/L (55-170)
[2022-08-15] MEDS: MORPHINE 4 MG/ML INJ IV (09:11)
[2022-08-15 09:21] LABS: Troponin I 0.017 ng/mL (0.01-0.034)
[2022-08-15 11:09] LABS: Creatine Kinase 40 U/L (55-170)
[2022-08-15 11:26] LABS: Troponin I < 0.012 ng/mL (0.01-0.034)
[2022-08-15] MEDS: HYDROCODONE/ACET 5/325 TABLET 1 TAB PO (12:19)
== END 2022-08-15 13:00 | disposition home or self-care (01) ==
LOC: ED 10:23 → AC 11:31 → ED 12:00
PROVIDERS: Emergency Medicine; Emergency Provider Emergency Medicine; PCP Family Medicine; Referring Provider Emergency Medicine
DX: R07.9 Chest pain, unspecified (principal); I48.91 Unspecified atrial fibrillation; Z79.01 Long term (current) use of anticoagulants
CPT/HCPCS: 71045; 71275; 80053; 82550; 83690; 83880; 84484; 85025; 85610; 93005; 93010; 96361; 96374; 99284; 99285; J2270; Q9967

== ENCOUNTER → 2022-09-22 10:12 | Outpatient (CLI) | payer MEDICARE, OTHER, SELFPAY ==
--- NOTE | 2022-09-22 10:13 | DI.US.S_ITS ---
PROCEDURE: US ABD AORTA ANEURYSM SCREEN INDICATIONS: SCREENING TECHNIQUE: Real time scanning was performed of the aorta and iliac arteries, with image documentation. COMPARISON: None. FINDINGS: Aorta: The proximal aorta is not well seen. Mid-aorta measures 2 cm. Distal aortic diameter is 2.2 cm. Iliac arteries: Right common iliac artery measures 1.5 cm. Left common iliac artery measures 1.7 cm. IMPRESSION: Negative for aneurysm. Dictated by: Stephon Estrada M.D. on 09/22/2022 at 11:13 Approved by: Stephon Estrada M.D. on 09/22/2022 at 11:13
== END ==
PROVIDERS: PCP Family Medicine; Referring Provider Family Medicine; Visit Provider Family Medicine
DX: Z13.6 Encounter for screening for cardiovascular disorders (principal)
CPT/HCPCS: 76706

== ENCOUNTER → 2023-01-14 09:08 | Outpatient (CLI) | payer MEDICARE, OTHER, SELFPAY ==
[2023-01-14 11:05] LABS: Alanine Aminotransferase 29 IU/L (<50); Albumin 3.7 g/dL (3.5-5.0); Albumin Globulin Ratio 1.2 (1.0-2.8); Alkaline Phosphatase 80 U/L (38-126); Aspartate Aminotransferase 36 IU/L (17-59); BUN Creatinine Ratio 20.8 (6-22); Bilirubin Total 0.9 mg/dL (0.2-1.3); Blood Urea Nitrogen 20 mg/dL (9-20); Calcium 8.7 mg/dL (8.4-10.2); Carbon Dioxide 30 mmol/L (22-32); Chloride 101 mmol/L (98-107); Cholesterol 126 mg/dL (140-199); Estimated Glomerular Filt Rate > 60 mL/min (>60); Glucose 101 mg/dL (80-110); HDL Cholesterol 48 mg/dL (40-60); HEMOLYSIS < 15 (0-50); LDL Cholesterol Calculated 58 mg/dL (<100); Potassium 4.5 mmol/L (3.4-5.1); Sodium 135 mmol/L (137-145); Total Protein 6.7 g/dL (6.3-8.2); Triglycerides 98 mg/dL (35-150)
== END ==
PROVIDERS: PCP Family Medicine; Referring Provider Specialist; Visit Provider Specialist
DX: I48.20 Chronic atrial fibrillation, unspecified (principal); E78.00 Pure hypercholesterolemia, unspecified; I10 Essential (primary) hypertension
CPT/HCPCS: 36415; 80053; 80061; 83735

== ENCOUNTER 2023-04-12 15:58 | Emergency (ER) | payer MEDICARE, OTHER, SELFPAY ==
[2023-04-12 16:06] VITALS: BP 161/96; PULSE 89; RESP 16; TEMP 36.6; O2SAT 97; BMI 33.5
--- NOTE | 2023-04-12 16:17 | PC.NURSE ---
3 days ago felt like he had something in his eye so he rubbed it. Woke up this morning with a redness and drainage. Only scant yellow green crust is visible but patient states he woke with a wet eye
[2023-04-12] MEDS: PROPARACAINE 0.5% OPHTH SOL 1 DROPS EYE-RIGHT (16:21)
[2023-04-12] MEDS: FLUORESCEIN 1 MG STRIP EYE-RIGHT (16:21)
[2023-04-12] MEDS: ERYTHROMYCIN OPHTH 1 GM OINT 1 APPLIC EYE-RIGHT (16:47)
[2023-04-12 16:56] VITALS: BP 132/89; PULSE 82; RESP 14; O2SAT 97
--- NOTE | 2023-04-12 17:01 | ED.EYEPROB ---
HPI - Eye Problem <Cortney Arias PA-C - Last Filed: 04/12/23 17:07> General Chief complaint: Eye Problems Stated complaint: R/ eye swollen and red Time Seen by Provider: 04/12/23 16:27 Source: patient Mode of arrival: Ambulatory History of Present Illness HPI Narrative: 78-year-old male presents with 3 days of right eye redness and irritation. Patient states he has noted some yellow discharge as well. Patient endorses irritation in the eye, denies pain. Patient denies any vision changes. Patient does not wear contacts. Patient wears eyeglasses for reading. Patient denies fever, chills. Related Data Home Medications Medication Instructions Recorded Confirmed magnesium oxide-pyridoxine HCl 362 1 tab PO DAILY A-fib 02/20/22 03/26/23 mg-20 mg tablet Previous Rx's Medication Instructions Recorded cyclobenzaprine 5 mg tablet 5 mg PO TID PRN muscle spasm #30 08/18/22 tabs carvedilol 25 mg tablet See Rx Instructions .Route 03/26/23 .COMPLEX A-fib #270 tabs fluoxetine 10 mg capsule (Prozac) 10 mg PO DAILY #90 caps 03/26/23 lisinopril 2.5 mg tablet 2.5 mg PO DAILY #90 tabs 03/26/23 rosuvastatin 20 mg tablet 20 mg PO DAILY #90 tabs 03/26/23 warfarin 5 mg tablet 5 mg PO DAILY #90 tabs 03/26/23 Allergies Allergy/AdvReac Type Severity Reaction Status Date / Time Sulfa (Sulfonamide AdvReac Intermediate Vomiting Verified 04/12/23 16:06 Antibiotics) Review of Systems <Cortney Arias PA-C - Last Filed: 04/12/23 17:07> Constitutional Constitutional: Denies chills, Denies fatigue, Denies fever(s), Denies frequent falls, Denies lethargy and Denies weakness Eyes Eyes: Denies blurry vision, Denies change in vision, Denies eye discharge, Reports irritation and Denies loss of vision Comments: Right eye redness, irritation ENT Ears, Nose, Mouth, and Throat: Denies change in voice, Denies dizziness, Denies neck pain, Denies sore throat and Denies throat swelling Cardiovascular Cardiovascular: Denies chest pain, Denies irregular heart rhythm, Denies lightheadedness, Denies palpitations, Denies dyspnea, Denies dyspnea on exertion and Denies orthopnea Respiratory Respiratory: Denies cough, Denies dyspnea, Denies dyspnea on exertion and Denies wheezing Gastrointestinal Gastrointestinal: Denies abdominal pain, Denies change in bowel habits, Denies diarrhea, Denies nausea and Denies vomiting Musculoskeletal Musculoskeletal: Denies neck pain and Denies numbness Integumentary/Breasts Skin/Breast: Denies pruritus, Denies erythema, Denies rash and Denies wounds Neurologic Neurologic: Denies behavioral changes, Denies confusion, Denies dizziness, Denies frequent falls, Denies loss of vision, Denies numbness and Denies weakness Psychiatric Psychiatric: Denies anxiety, Denies behavioral changes, Denies confusion, Denies depression, Denies homicidal ideation and Denies suicidal ideation Endocrine Endocrine: Denies fatigue, Denies flushing and Denies palpitations Hematologic/Lymphatic Hematologic/Lymphatic: Denies easy bruising Allergic/Immunologic Allergic/Immunologic: Denies urticaria, Denies throat swelling and Denies wheezing Patient History <Cortney Arias PA-C - Last Filed: 04/12/23 17:07> Medical History Encounter for subsequent annual wellness visit (AWV) in Medicare patient EUGENE (generalized anxiety disorder) Hearing loss Atrial fibrillation (~2016) Family History Father History of heart disease Mother History of heart disease Brother History of kidney cancer Social History Smoking Status: Former smoker Tobacco: How many years used: 30 quit status: quit date established alcohol intake: current (2-3 drinks a night ) substance use type: former substance user (former marijuana in -90s) and marijuana (former ) Smoking Status: Former smoker alcohol intake frequency: holidays/special occasions only Substance Use Type: does not use Exam <Cortney Arias PA-C - Last Filed: 04/12/23 17:07> Narrative Exam Narrative: Const General:?cooperative, healthy appearing and comfortable HENWY Head:?normal to inspection Ears:?hearing grossly normal bilaterally Nose:?external nose normal Face and sinus:?normal facial exam and sinuses nontender Mouth:?oral mucosae normal Throat:?posterior oropharynx normal Eyes General:? Right eye appears irritated with conjunctival injection. There is some yellow discharge noted on exam. Fluorescein exam negative. PH was normal. Vision grossly normal Neck Neck:?normal visual inspection and no lymphadenopathy noted Resp Effort & Inspection:?normal respiratory effort Auscultation:?clear to auscultation bilaterally Cardio Rate:?regular rate Rhythm:?regular rhythm Neuro General:?patient alert, patient awake and patient oriented x3 Initial Vital Signs Initial Vital Signs: Vital Signs Temperature 97.9 F 04/12/23 16:06 Pulse Rate 89 04/12/23 16:06 Respiratory Rate 16 04/12/23 16:06 Blood Pressure 161/96 H 04/12/23 16:06 Pulse Oximetry 97 04/12/23 16:06 Oxygen Delivery Method Room Air 04/12/23 16:06 <Rachel Lea DO - Last Filed: 04/20/23 22:52> Initial Vital Signs Initial Vital Signs: Vital Signs Temperature 97.9 F 04/12/23 16:06 Pulse Rate 89 04/12/23 16:06 Respiratory Rate 16 04/12/23 16:06 Blood Pressure 161/96 H 04/12/23 16:06 Pulse Oximetry 97 04/12/23 16:06 Oxygen Delivery Method Room Air 04/12/23 16:06 Course <Cortney Arias PA-C - Last Filed: 04/12/23 17:07> Orders Ordered: Discontinued Medications Erythromycin (Erythromycin Ophth 1 Gm Oint) 1 applic EYE-RIGHT NOW ONE Stop: 04/12/23 16:44 Last Admin: 04/12/23 16:47 Dose: 1 applic Documented By: EKATERINA Fluorescein Sodium (Fluorescein 1 Mg Strip) 1 mg EYE-RIGHT NOW ONE Stop: 04/12/23 16:11 Last Admin: 04/12/23 16:21 Dose: 1 mg Documented By: EKATERINA Proparacaine HCl (Proparacaine 0.5% Ophth Susi) 1 drops EYE-RIGHT NOW ONE Stop: 04/12/23 16:11 Last Admin: 04/12/23 16:21 Dose: 1 drop Documented By: EKATERINA Vital Signs Vital signs: Vital Signs - 8 hr 04/12/23 16:06 04/12/23 16:56 Temperature 97.9 F Pulse Rate 89 82 Respiratory Rate 16 14 Blood Pressure 161/96 H 132/89 Pulse Oximetry 97 97 Oxygen Delivery Method Room Air Room Air <Rachel Lea DO - Last Filed: 04/20/23 22:52> Orders Ordered: Discontinued Medications Erythromycin (Erythromycin Ophth 1 Gm Oint) 1 applic EYE-RIGHT NOW ONE Stop: 04/12/23 16:44 Last Admin: 04/12/23 16:47 Dose: 1 applic Documented By: EKATERINA Fluorescein Sodium (Fluorescein 1 Mg Strip) 1 mg EYE-RIGHT NOW ONE Stop: 04/12/23 16:11 Last Admin: 04/12/23 16:21 Dose: 1 mg Documented By: EKATERINA Proparacaine HCl (Proparacaine 0.5% Ophth Susi) 1 drops EYE-RIGHT NOW ONE Stop: 04/12/23 16:11 Last Admin: 04/12/23 16:21 Dose: 1 drop Documented By: EKATERINA Vital Signs Vital signs: Vital Signs - 8 hr 04/12/23 16:06 04/12/23 16:56 Temperature 97.9 F Pulse Rate 89 82 Respiratory Rate 16 14 Blood Pressure 161/96 H 132/89 Pulse Oximetry 97 97 Oxygen Delivery Method Room Air Room Air MDM - Eye Problem <Cortney Arias PA-C - Last Filed: 04/12/23 17:07> MDM Narrative Medical decision making narrative: 78-year-old male presents with 3 days of right eye redness and irritation. History and physical exam most consistent with bacterial conjunctivitis. Fluorescein exam was negative. PH normal. Will prescribe antibiotic ointment. Recommend follow-up with ophthalmology as soon as possible. ED return precautions discussed with patient. Patient verbalized understanding. Medical records reviewed: Yes Discharge Plan Departure Patient Disposition: Home Clinical Impression: Conjunctivitis Qualifiers: Conjunctivitis type: acute Instructions: DI for Conjunctivitis Activity Restrictions/Additional Instructions: You were evaluated in the ED today for right eye irritation. You are being prescribed an antibiotic ointment for 7 days. Please apply it as prescribed. Please follow-up with an automatic nailing machine feeder as soon as possible. Return to the ED via worsening symptoms, vision changes. Prescriptions: No Action magnesium oxide-pyridoxine HCl 362-20 mg tablet 1 tab PO DAILY cyclobenzaprine 5 mg tablet 5 mg PO TID PRN (Reason: muscle spasm) Qty: 30 5RF carvedilol 25 mg tablet See Rx Instructions .ROUTE .COMPLEX Qty: 270 3RF Rx Instructions: take 1.5 tablets (37.5 total) by mouth 2 (two) times a day; fluoxetine [Prozac] 10 mg capsule 10 mg PO DAILY Qty: 90 3RF lisinopril 2.5 mg tablet 2.5 mg PO DAILY Qty: 90 3RF rosuvastatin 20 mg tablet 20 mg PO DAILY Qty: 90 3RF warfarin 5 mg tablet 5 mg PO DAILY Qty: 90 3RF Referrals: Jose Guadalupe Nicholson DO [Primary Care Provider] - Stand Alone Forms: Patient Portal/API ED Sign-out <Rachel Lea DO - Last Filed: 04/20/23 22:52> Cosign ED Attending Cospoature Attestation: I was immediately available in the department for consultation.
== END 2023-04-12 16:56 | disposition home or self-care (01) ==
PROVIDERS: Emergency Provider Student in an Organized Health Care Education/Training Program; PCP Family Medicine
DX: H10.31 Unspecified acute conjunctivitis, right eye (principal)
CPT/HCPCS: 99282; 99283

== ENCOUNTER → 2023-09-13 06:40 | Outpatient (CLI) | payer MEDICARE, OTHER, SELFPAY ==
[2023-09-13 08:35] LABS: Add Manual Diff / Slide Review NO; Basophils Absolute Auto 0 /uL (0-100); Basophils Percent Auto 0.8 % (0-2); Eosinophils Absolute Auto 200 /uL (0-450); Eosinophils Percent Auto 3.1 % (2-4); Hemoglobin 15.2 g/dL (13.5-17.5); Lymphocytes Absolute Auto 1100 /uL (1100-4500); Lymphocytes Percent Auto 16.8 % (25-40); Mean Corpuscular HGB Conc 33.7 % (30-36); Mean Corpuscular Hemoglobin 34.8 PG (26-34); Mean Corpuscular Volume 103.3 fL (80-100); Monocytes Absolute Auto 700 /uL (0-900); Monocytes Percent Auto 11.9 % (3-14); Neutrophils Absolute Auto 4200 /uL (1500-7000); Neutrophils Percent Auto 67.4 % (50-75); Platelet Count 112 X10^3/uL (150-400); Red Blood Cell Count 4.36 X10^6/uL (4.5-5.9); Red Cell Distribution Width 15.1 % (11.6-14.8); White Blood Cell Count 6.2 X10^3/uL (4.5-11.0)
[2023-09-13 09:10] LABS: Alanine Aminotransferase 15 IU/L (<50); Albumin 3.7 g/dL (3.5-5.0); Albumin Globulin Ratio 1.2 (1.0-2.8); Alkaline Phosphatase 81 U/L (38-126); Aspartate Aminotransferase 26 IU/L (17-59); Bilirubin Total 0.7 mg/dL (0.2-1.3); Blood Urea Nitrogen 22 mg/dL (9-20); Carbon Dioxide 28 mmol/L (22-32); Chloride 104 mmol/L (98-107); Estimated Glomerular Filt Rate > 60 mL/min (>60); Glucose 87 mg/dL (80-110); HEMOLYSIS < 15 (0-50); Potassium 4.5 mmol/L (3.4-5.1); Sodium 137 mmol/L (137-145); Total Protein 6.7 g/dL (6.3-8.2)
[2023-09-15 13:44] LABS: Cholesterol, Total 152 mg/dL (100-199); HDL-Cholesterol 55 mg/dL (>39); LDL Particle 673 nmol/L (<1000); LDL Size 20.4 nm (>20.5); LDL-Cholsterol 74 mg/dL (0-99); LP-IR Score 35 (<=45); Small LDL- Particle 287 nmol/L (<=527); Triglycerides 133 mg/dL (0-149)
== END ==
PROVIDERS: PCP Family Medicine; Referring Provider Specialist; Visit Provider Specialist
DX: E78.00 Pure hypercholesterolemia, unspecified (principal); I10 Essential (primary) hypertension; Z79.01 Long term (current) use of anticoagulants
CPT/HCPCS: 36415; 80053; 80061; 83704; 83735; 85025

== ENCOUNTER → 2024-05-15 07:19 | Outpatient (CLI) | payer MEDICARE, OTHER, SELFPAY ==
[2024-05-15 08:38] LABS: Hemoglobin 14.8 g/dL (13.5-17.5); Mean Corpuscular HGB Conc 33.6 % (30-36); Mean Corpuscular Hemoglobin 34.5 PG (26-34); Mean Corpuscular Volume 102.9 fL (80-100); Platelet Count 116 X10^3/uL (150-400); Red Blood Cell Count 4.28 X10^6/uL (4.5-5.9); White Blood Cell Count 5.6 X10^3/uL (4.5-11.0)
[2024-05-15 08:56] LABS: Hemoglobin A1C% w Est Avg Glu 5.8 % (4.0-6.0)
[2024-05-15 09:02] LABS: Alanine Aminotransferase 13 IU/L (<50); Albumin 3.7 g/dL (3.5-5.0); Albumin Globulin Ratio 1.2 (1.0-2.8); Alkaline Phosphatase 78 U/L (38-126); Aspartate Aminotransferase 26 IU/L (17-59); BUN Creatinine Ratio 19.8 (6-22); Bilirubin Total 0.6 mg/dL (0.2-1.3); Blood Urea Nitrogen 25 mg/dL (9-20); Calcium 8.8 mg/dL (8.4-10.2); Carbon Dioxide 29 mmol/L (22-32); Chloride 104 mmol/L (98-107); Estimated Glomerular Filt Rate 59 mL/min (>60); Glucose 105 mg/dL (80-110); HEMOLYSIS < 15 (0-50); Magnesium 1.9 mg/dL (1.6-2.3); Potassium 4.7 mmol/L (3.4-5.1); Sodium 136 mmol/L (137-145); Total Protein 6.7 g/dL (6.3-8.2)
[2024-05-15 09:50] LABS: Vitamin B12 361 pg/mL (239-931)
== END ==
LOC: LAB 07:21
PROVIDERS: PCP Family Medicine; Referring Provider Specialist; Visit Provider Specialist
DX: Z00.00 Encounter for general adult medical examination without abnormal findings (principal); E78.00 Pure hypercholesterolemia, unspecified; I48.20 Chronic atrial fibrillation, unspecified; I10 Essential (primary) hypertension; D75.89 Other specified diseases of blood and blood-forming organs; I48.91 Unspecified atrial fibrillation; E78.5 Hyperlipidemia, unspecified
CPT/HCPCS: 36415; 80053; 82607; 83036; 83735; 85027

== ENCOUNTER → 2025-02-09 09:44 | Outpatient (CLI) | payer MEDICARE, OTHER, SELFPAY ==
[2025-02-09 10:30] LABS: Prothrombin Time 62.8 SECONDS (9.4-12.5)
[2025-02-09 10:39] LABS: INR 5.8 (0.9-1.3)
== END ==
PROVIDERS: PCP Family Medicine; Referring Provider Family Medicine; Visit Provider Family Medicine
DX: Z51.81 Encounter for therapeutic drug level monitoring (principal); Z79.01 Long term (current) use of anticoagulants; I48.21 Permanent atrial fibrillation; Z79.899 Other long term (current) drug therapy
CPT/HCPCS: 36415; 85610

== ENCOUNTER → 2025-02-14 06:36 | Outpatient (CLI) | payer MEDICARE, OTHER, SELFPAY ==
[2025-02-14 07:47] LABS: Hematocrit 34.6 % (41-53); Hemoglobin 11.7 g/dL (13.5-17.5); Mean Corpuscular HGB Conc 34.0 % (30-36); Mean Corpuscular Hemoglobin 35.1 PG (26-34); Mean Corpuscular Volume 103.2 fL (80-100); Platelet Count 142 X10^3/uL (150-400)
[2025-02-14 08:03] LABS: Alanine Aminotransferase 12 IU/L (<50); Albumin 3.7 g/dL (3.5-5.0); Albumin Globulin Ratio 1.3 (1.0-2.8); Alkaline Phosphatase 74 U/L (38-126); Blood Urea Nitrogen 19 mg/dL (9-20); Calcium 8.7 mg/dL (8.4-10.2); Carbon Dioxide 26 mmol/L (22-32); Chloride 103 mmol/L (98-107); Estimated Glomerular Filt Rate > 60 mL/min (>60); Globulin 2.8 g/dL (1.7-4.1); Glucose 109 mg/dL (70-99); HEMOLYSIS < 15 (0-50); Magnesium 1.9 mg/dL (1.6-2.3); Potassium 4.6 mmol/L (3.4-5.1); Sodium 136 mmol/L (137-145); Total Protein 6.5 g/dL (6.3-8.2)
== END ==
PROVIDERS: PCP Family Medicine; Referring Provider Specialist; Visit Provider Specialist
DX: E78.00 Pure hypercholesterolemia, unspecified (principal); I10 Essential (primary) hypertension; Z79.01 Long term (current) use of anticoagulants
CPT/HCPCS: 36415; 80053; 80061; 83704; 83735; 85027

== ENCOUNTER → 2025-02-19 13:35 | Outpatient (CLI) | payer MEDICARE, OTHER, SELFPAY ==
--- NOTE | 2025-02-19 13:37 | DI.ECHO.S_ITS ---
:Name: DEWAYNE OLIVER Study Date: 02/19/2025 Height: 70 in : :Hospital Reading Location: Weight: 230 lb : : Gender: Male BSA: 2.2 m2 : :: 1945 Age: 79 yrs BP: 127/80 mmHg: :Reason For Study: DILATED CARDIOMYOPATHY : :Ordering Physician: ANNETTE BARRIOS Performed By: Mayco Milton : :Referring: ANNETTE BARRIOS : + + Interpretation Summary Left ventricular systolic function remains low normal with an estimated ejection fraction of 50 to 60% with [id number] variability but no focal wall motion abnormality or change from the previous exam. Left ventricular volumes remain normal and filling pressures are likely normal and similar to the previous exam. The right ventricle is borderline enlarged with borderline hypokinesis but appears unchanged. Right ventricular systolic pressure cannot be estimated but CVP is likely 3 to 8 mmHg, similar to the previous exam. There is mild left atrial enlargement and moderate right atrial enlargement, the former slightly smaller and the latter slightly larger compared to the previous exam. There continues to be mild mitral regurgitation and mild to moderate aortic regurgitation that are unchanged from the previous study. There is moderate enlargement of the ascending aorta that is unchanged with mild aortic root enlargement that is slightly progressive. The patient remains in atrial fibrillation at 60 to 92 bpm, similar to the previous exam. Procedure: A two-dimensional transthoracic echocardiogram with color flow and Doppler was performed. The study quality was technically adequate. Comparison is made with the echocardiogram of 03/09/2022. The patient was in atrial fibrillation with heart rates between 60-92 bpm during the exam. This is unchanged compared to the previous study. Left Ventricle: The left ventricle is normal in size and wall thickness. The estimated left ventricular end diastolic volume is 78 mL compared to the previous 72 ml. There is mild proximal septal thickening noted. This is unchanged compared to the previous study. There is no ventricular septal defect visualized. Left ventricular systolic function appears normal without focal wall motion abnormalities. Left ventricular ejection fraction is estimated to be 50- 60%. There are no focal wall motion abnormalities. This is unchanged compared to the previous study. Diastolic function could not be accurately assessed due to atrial fibrillation. This is likely similar compared to the previous study. Right Ventricle: The right ventricle is borderline dilated. Right ventricular systolic function is borderline reduced. This is unchanged compared to the previous study. Atria: The left atrium is mildly dilated. The left atrium has mildly decreased in size since the prior echo exam. The right atrium is moderately dilated. The right atrium has mildly increased in size since the prior echo exam. There is no Doppler evidence for an interatrial shunt. Mitral Valve: There is mild to moderate mitral annular calcification. The mitral valve leaflets are mildly calcified. There is mild mitral regurgitation. This is unchanged compared to the previous study. Aortic Valve: The aortic valve is trileaflet. There is mild aortic valve sclerosis. The aortic valve is mildly calcified. The aortic valve opens well. There is mildly reduced leaflet mobility. There is no hemodynamically significant valvular aortic stenosis. There is mild to moderate aortic regurgitation. This is unchanged compared to the previous study. Tricuspid Valve: The tricuspid valve is not well visualized, but is grossly normal. There is trace tricuspid regurgitation. Pulmonary artery pressures cannot be estimated because of the lack of a measurable TR jet velocity but the IVC suggests a CVP of around 3-8 mmHg. This is unchanged compared to the previous study. Pulmonic Valve: The pulmonic valve leaflets are thin and pliable; valve motion is normal. There is no pulmonic valvular regurgitation. Great Vessels: The aortic root is mildly dilated. This is slightly low compared to the previous study. The ascending aorta is moderately enlarged. This is unchanged compared to the previous study. The pulmonary artery is normal size. The IVC is dilated (diameter is greater than 2.1 cm) yet it collapses greater than 50% with a sniff. This suggests a right atrial pressure of 8 mm Hg. Pericardium/ Pleura There is no pericardial effusion. There is no pleural effusion. MMode/2D Measurements & Calculations LVIDd: 5.3 cm AoV Openin.4 cm LVIDs: 3.9 cm LVOT diam: 2.4 cm IVSd: 0.89 cm Ao root diam: 3.8 cm LVPWd: 0.91 cm asc Aorta Diam: 4.3 cm LV morales. diameter/BSA (cm/m^2): 2.4 Ao Arch Diam (Prox Trans): 2.3 cm LV sys. diameter/BSA (cm/m^2): 1.8 FS: 26.2 % EPSS: 0.44 cm LA A2 area: 25.4 cm2 RA long axis: 6.5 cm LA A4 area: 29.6 cm2 RA area: 29.5 cm2 LA length (vol): 7.5 cm RA vol: 114.3 ml LA vol: 85.4 ml RA : 51.6 ml/m2 LA vol index: 38.6 ml/m2 RVD1 (basal): 2.7 cm IVC diam: 2.1 cm RVD2 (mid): 2.1 cm TAPSE: 1.6 cm Doppler Measurements & Calculations Ao V2 max: 142.4 cm/sec LVOT Max Jovani: 78.4 cm/sec Ao V2 mean: 96.1 cm/sec LV V1 max P.5 mmHg Ao V2 VTI: 30.4 cm LV V1 VTI: 17.4 cm Ao max P.1 mmHg Ao mean P.1 mmHg ANTIONE(I,D): 2.6 cm2 MV E max jovani: 106.9 cm/sec ANTIONE(V,D): 2.5 cm2 MV A max jovani: 17.4 cm/sec ANTIONE indexed to BSA (cm^2/m^2): 1.2 MV E/A: 6.1 sev ratio: 0.57 Med Peak E' Jovani: 8.6 cm/sec E/E' med: 12.4 Lat Peak E' Jovani: 10.4 cm/sec E/E' lat: 10.3 E/e' average: 11.3 MV dec time: 0.14 sec TR max jovani: 259.9 cm/sec TR max P.0 mmHg PA V2 max: 110.5 cm/sec SV(LVOT): 78.1 ml PA V2 mean: 67.3 cm/sec PA mean P.1 mmHg PA pr(Accel): 56.7 mmHg Reading Physician:10:37 AM
== END ==
LOC: ECHO 13:36
PROVIDERS: PCP Family Medicine; Referring Provider Family Medicine; Visit Provider Specialist
DX: I42.0 Dilated cardiomyopathy (principal); I08.0 Rheumatic disorders of both mitral and aortic valves; I77.810 Thoracic aortic ectasia; I77.89 Other specified disorders of arteries and arterioles
CPT/HCPCS: 93306